=== PATIENT | female | born 1940 | race Caucasian/White ===

== ENCOUNTER 2016-09-10 20:06 | Inpatient (IN) | payer MEDICARE, OTHER ==
[~2016-09-10] VITALS: Ht 152.4 cm; Wt 60.4 kg
[~2016-09-10 20:06] MED LIST: ALEN70TA46 PO; ARIP10TA10 PO; CARV3.1238 PO; CITA20TA6 PO; DOCU-160 PO; FAMO40TA38 PO; FERR324T11 PO; HYDR-1666 PO; HYDR-3581 PO; LISI40TA PO; MEMA5TAB PO; METO5TAB2 PO; SIMV20TA2 PO; SOLI5TAB5 PO; ZOLP10TA PO; asa PO; oxybutin PO
[2016-09-10 20:08] VITALS: Ht 152.4 cm; Wt 60.4 kg
[2016-09-10] MEDS ORDERED: CEFEPIME 2GM/50 ML (PMX) 50 ML IVPB STA (20:09)
[2016-09-10] MEDS ORDERED: SOD CHLORIDE 0.9% 1,000 ML IV STA ×2 (20:09)
[2016-09-10] MEDS ORDERED: VANCOMYCIN 1 GM (PMX) 250 ML IVPB ONE (20:30)
[2016-09-10 20:34] LABS: ADD SCAN DIFF NO
[2016-09-10 20:37] LABS: BASOPHIL # 0.1 10^3/ul (0.0-0.1); BASOPHILS % 0.3 % (0.0-2.0); EOSINOPHILS # 0.2 10^3/ul (0.0-0.5); EOSINOPHILS % 1.1 % (0.0-7.0); HEMATOCRIT 36.8 % (37.0-47.0); HEMOGLOBIN 12.2 g/dl (12.0-16.0); LYMPHOCYTES # 1.4 10^3/ul (0.8-2.9); LYMPHOCYTES % 7.7 % (15.0-51.0); MEAN CORPUSCULAR HEMOGLOBIN 29.3 pg (29.0-33.0); MEAN CORPUSCULAR HGB CONC 33.2 g/dl (32.0-37.0); MEAN CORPUSCULAR VOLUME 88.2 fl (82.0-101.0); MEAN PLATELET VOLUME 9.6 fl (7.4-10.4); MONOCYTE # 0.9 10^3/ul (0.3-0.9); MONOCYTES % 4.8 % (0.0-11.0); NEUTROPHILS % 84.2 % (39.0-77.0); PLATELET COUNT 448 10^3/UL (140-415); RED BLOOD COUNT 4.17 10^6/ul (4.20-5.40); RED CELL DISTRIBUTION WIDTH 12.5 % (11.5-14.5); WHITE BLOOD COUNT 17.8 10^3/ul (4.8-10.8)
[2016-09-10 20:47] LABS: INR 1.01; PROTIME 13.3 Sec (12.2-14.2)
[2016-09-10 20:48] LABS: PARTIAL THROMBOPLASTIN TIME 31.8 Sec (25.0-35.0)
[2016-09-10 20:52] LABS: ALBUMIN 3.4 g/dl (3.3-4.9); CHLORIDE 106 mmol/L (97-110)
[2016-09-10 20:53] LABS: POTASSIUM 3.5 mmol/L (3.5-5.1); SODIUM 145 mmol/L (135-144)
[2016-09-10 20:55] LABS: ALANINE AMINOTRANSFERASE 10 IU/L (13-69); ALBUMIN/GLOBULIN RATIO 0.77; ALKALINE PHOSPHATASE 86 IU/L (42-121); ANION GAP 18 (8-16); ASPARTATE AMINO TRANSFERASE 20 IU/L (15-46); BILIRUBIN,INDIRECT 0.1 mg/dl (0-1.1); BILIRUBIN,TOTAL 0.1 mg/dl (0.2-1.3); BLOOD UREA NITROGEN 31 mg/dl (7-20); CARBON DIOXIDE 25 mmol/L (21-31); CREATININE 0.91 mg/dl (0.44-1.00); TOTAL PROTEIN 7.8 g/dl (6.1-8.1)
[2016-09-10 20:56] LABS: CALCIUM 8.7 mg/dl (8.4-10.2); GLUCOSE 151 mg/dl (70-220)
[2016-09-10 21:14] LABS: TROPONIN-I < 0.012 ng/ml (0.00-0.12)
[2016-09-10 21:48] VITALS: TEMP 99
--- NOTE | 2016-09-10 21:48 | ERA ---
ER Documentation Chief Complaint Date/Time DATE: 09/10/16 TIME: 21:45 Chief Complaint more altered than normal x 2 days, fevers 101-102. nonverbal baseline. HPI Patient is a 75-year-old female with dementia who presents more altered than usual. Please note the history and physical exam is limited secondary to the patient's mental status at this time. There is no family available. The patient was brought in by ambulance. She came from home. She had a fever of 102 at home and was given ibuprofen prior to arrival. The patient had a sugar of 140 per paramedics. She is nonverbal at baseline. However she is usually more awake and alert. ROS All systems reviewed and are negative except as per history of present illness. Medications Home Meds Discontinued Reported Medications Solifenacin* (Vesicare*) 5 Mg Tablet, PO DAILY 10/19/12 Simvastatin (Simvastatin) 20 Mg Tablet, PO DAILY 10/19/12 Alendronate Sodium* (Binosto*) 70 Mg Tablet.eff, PO 1X A WEEK 10/19/12 Lisinopril* (Prinivil*) 40 Mg Tablet, PO DAILY 10/19/12 Docusate Sodium (Dulcolax Stool Softener) 100 Mg Capsule, 200 MG PO BID 10/19/12 Metoclopramide Hcl (Reglan) 5 Mg Tab, 5 MG PO daily 02/01/12 Carvedilol* (Coreg*) 3.125 Mg Tablet, 3.125 MG PO bid, 0 Refills 02/01/12 [oxybutin] No Conflict Check, 5 MG PO DAILY, 0 Refills 02/01/12 Aripiprazole* (Abilify*) 10 Mg Tablet, 10 MG PO daily 02/01/12 Famotidine* (Pepcid*) 40 Mg Tablet, 40 MG PO daily 02/01/12 Ferrous Fumarate (Ferrous Fumarate) 324 Mg Tablet, 324 MG PO daily 02/01/12 Zolpidem Tartrate (Ambien Christiano) 10 Mg Tablet, 10 MG PO HS PRN, 0 Refills 02/01/12 [asa] No Conflict Check, 81 MG PO daily 02/01/12 Citalopram Hydrobromide* (Citalopram Hydrobromide*) 20 Mg Tablet, 20 MG PO daily 02/01/12 Hydrocodone Bit/Acetaminophen (Vicodin 5/500 Tablet) 1 Tab Tablet, 1 TAB PO as nedded 02/01/12 Memantine* (Namenda*) 5 Mg Tablet, 5 MG PO tid, 0 Refills 02/01/12 Hydroxyzine Hcl* (Atarax*) 10 Mg Tab, 10 MG PO daily 02/01/12 Allergies Allergies: Coded Allergies: No Known Allergy (Unverified , 09/10/16) PMhx/Soc History of Surgery: Yes (LEFT MASTECTOMY) Anesthesia Reaction: No Hx Neurological Disorder: Yes (DEMENTIA, ALZHEIMERS) Hx Respiratory Disorders: No Hx Cardiac Disorders: Yes (HTN) Hx Psychiatric Problems: Yes (SCHIZOPHRENIA) Hx Miscellaneous Medical Probl: Yes (BREAST CA) Hx Alcohol Use: No Hx Substance Use: No Hx Tobacco Use: No Smoking Status: Never smoker FmHx Unable to obtain Physical Exam Vitals Vital Signs Date Time Temp Pulse Resp B/P Pulse Ox O2 Delivery O2 Flow Rate FiO2 09/10/16 20:08 99.8 94 19 131/97 92 Physical Exam Const: Chronically ill Head: Atraumatic Eyes: Normal Conjunctiva ENT: Normal External Ears, Nose and Mouth. Neck: Full range of motion..~ No meningismus. Resp: Decreased breath sounds bilaterally Cardio: Regular rate and rhythm, no murmurs Abd: Soft, non tender, non distended. Normal bowel sounds Skin: Pale Back: No midline or flank tenderness Ext: No cyanosis, or edema Neur: Not following commands Result Diagram: 09/10/16201409/10/162014 Results 24 hrs Laboratory Tests Test 09/10/16 20:15 White Blood Count 17.810^3/ul Red Blood Count 4.1710^6/ul Hemoglobin 12.2g/dl Hematocrit 36.8% Mean Corpuscular Volume 88.2fl Mean Corpuscular Hemoglobin 29.3pg Mean Corpuscular Hemoglobin Concent 33.2g/dl Red Cell Distribution Width 12.5% Platelet Count 00044^3/UL Mean Platelet Volume 9.6fl Neutrophils % 84.2% Lymphocytes % 7.7% Monocytes % 4.8% Eosinophils % 1.1% Basophils % 0.3% Nucleated Red Blood Cells % 0.0/100WBC Neutrophils # 15.010^3/ul Lymphocytes # 1.410^3/ul Monocytes # 0.910^3/ul Eosinophils # 0.210^3/ul Basophils # 0.110^3/ul Nucleated Red Blood Cells # 0.010^3/ul Prothrombin Time 13.3Sec Prothrombin Time Ratio 1.0 INR International Normalized Ratio 1.01 Activated Partial Thromboplast Time 31.8Sec Sodium Level 145mmol/L Potassium Level 3.5mmol/L Chloride Level 106mmol/L Carbon Dioxide Level 25mmol/L Anion Gap 18 Blood Urea Nitrogen 31mg/dl Creatinine 0.91mg/dl Glucose Level 151mg/dl Lactic Acid Level 1.8mmol/L Calcium Level 8.7mg/dl Total Bilirubin 0.1mg/dl Direct Bilirubin 0.00mg/dl Indirect Bilirubin 0.1mg/dl Aspartate Amino Transf (AST/SGOT) 20IU/L Alanine Aminotransferase (ALT/SGPT) 10IU/L Alkaline Phosphatase 86IU/L Troponin I < 0.012ng/ml Total Protein 7.8g/dl Albumin 3.4g/dl Globulin 4.40g/dl Albumin/Globulin Ratio 0.77 Current Medications Medications (Trade) Dose Ordered Sig/Frances Route PRN Reason Start Time Stop Time Status Last Admin Dose Admin Cefepime HCl 50 ml @ 100 mls/hr ONCE STAT IVPB 09/10/16 20:09 09/10/16 20:38 DC 09/10/16 21:02 Vancomycin HCl 250 ml @ 125 mls/hr ONCE ONCE IVPB 09/10/16 20:30 09/10/16 22:29 09/10/16 21:24 Sodium Chloride 1,000 ml @ 1,000 mls/hr Q1H STAT IV 09/10/16 20:09 09/10/16 21:08 DC 09/10/16 20:37 Sodium Chloride (NS) 1,000 ml @ 1,000 mls/hr Q1H STAT IV 09/10/16 20:09 09/10/16 21:08 DC 09/10/16 20:37 Ondansetron HCl (Zofran Inj) 4 mg BRIDGE ORDER PRN IV NAUSEA AND/OR VOMITING 09/10/16 22:00 09/11/16 21:59 Acetaminophen (Tylenol Tab) 650 mg ER BRIDGE PRN PO MILD PAIN/FEVER 09/10/16 22:00 09/11/16 21:59 Procedures/MDM EKG read by me: Rate/Rhythm: Regular rate and rhythm at a rate of 85 Intervals: Normal Impression: No evidence of ischemia or arrhythmia Chest X-ray 1V Interpreted by me: Soft Tissue: No acute abnormalities Bones: No acute abnormalities Mediastinum/Cardiac Silhouette/Lungs: Left lower lobe pneumonia Patient is a 75-year-old female with dementia who presents with fever and altered mental status. I believe she has acute pneumonia. I doubt sepsis at this time. The patient will be given broad spectrum antibiotics and fluids. The patient will be admitted to the care of the panel team. I spoke with Dr. Bernard for admission to medical surgical bed. Departure Diagnosis: Primary Impression: Fever Qualified Code: R50.9 - Fever, unspecified fever cause Additional Impressions: Leukocytosis Qualified Code: D72.829 - Leukocytosis, unspecified type Pneumonia Qualified Code: J18.1 - Pneumonia of left lower lobe due to infectious organism Condition: JAMES Thomas MD Sep 10, 2016 21:48
[2016-09-10] MEDS ORDERED: ACETAMINOPHEN 325 MG TAB PO PRN (22:00)
[2016-09-10] MEDS ORDERED: ONDANSETRON 4 MG INJ IV PRN (22:00)
--- NOTE | 2016-09-10 22:32 | RADRPT ---
PROCEDURE: XR Chest. CLINICAL INDICATION: Possible sepsis. Left-sided pneumonia. TECHNIQUE: Single frontal view of the chest. COMPARISON: 02/01/2012. FINDINGS: Cardiomegaly and atherosclerotic calcifications in the thoracic aorta. Left retrocardiac airspace d isease compatible with pneumonia. Mild pulmonary vascular congestion. Right lung is otherwise subs tantially clear. No signs of pleural fluid or pneumothorax are seen. The osseous structures and soft tissues are unremarkable. IMPRESSION: Retrocardiac pneumonia. RPTAT: [facility] Physician Sofi Date Time Electronically viewed and signed by Physician Sofi on 09/10/2016 22:31 RS/
[2016-09-10 23:59] VITALS: BP 142/73; RESP 21
[2016-09-11] MEDS ORDERED: ONDANSETRON 4 MG INJ IV PRN
[2016-09-11] MEDS ORDERED: morphine 2 MG INJ IV PRN
[2016-09-11] MEDS ORDERED: hydrALAzine 20 MG INJ IV PRN
[2016-09-11] MEDS: DEXTROSE 5%-0.45% NACL 1,000 ML IV SCH ×2 (00:34→13:20)
[2016-09-11] MEDS ORDERED: LEVOFLOXACIN 500MG/D5W (PMX) 100 ML IVPB SCH (01:00)
[2016-09-11] MEDS: ALBUTEROL/IPRATROPIUM (NEB) 3 ML AMP HHN SCH ×6 (01:15→21:29)
--- NOTE | 2016-09-11 05:15 | HP ---
DATE OF ADMISSION: 09/10/2016 TIME SEEN: 11:30 CHIEF COMPLAINT: Altered mentation. HISTORY OF PRESENT ILLNESS: The patient is a 75-year-old female with a history of hypertension, dementia, delusional schizophrenia, breast cancer status post right-sided mastectomy, dyslipidemia and degenerative joint disease, who was brought in by ambulance from home for worsening mentation. Information is gathered from chart review and from the ER physician as the patient is not able to provide history because of her mentation and she is not verbal. Reportedly the patient had a fever of 101 and 102 at home per the ER nursing notes. No other additional information can be obtained at this time. on my physical exam, I have noted that there is a large right sided neck mass, which is tender to touch. When the patient presented to the ER, blood pressure was 131/97, heart rate 94, respiratory rate 19, temperature 99.8, oxygen saturation 92% on room air, which increased to 97% on room air within an hour or so. Laboratory value shows a WBC of almost 18,000. Sodium 145, BUN 31. Otherwise, CBC and CMP are within acceptable range. Her lactic acid has been checked 3 times and all were within normal limits. Chest x-ray shows a left retrocardiac airspace disease compatible with pneumonia as well as mild pulmonary vascular congestion, cardiomegaly and atherosclerotic calcification in the thoracic aorta. She received 2 liters of normal saline IV fluid and was started on cefepime and vancomycin while she was in the ER. REVIEW OF SYSTEMS: Unable to assess. PAST MEDICAL HISTORY: As per HPI. PAST SURGICAL HISTORY: Per charting, right mastectomy 10 years ago. SOCIAL HISTORY: Unknown. ALLERGIES: NO KNOWN DRUG ALLERGIES. HOME MEDICATIONS: None listed currently, but during her previous visit 3 years ago she was on: 1. Zocor. 2. Fosamax. 3. Lisinopril. 4. Reglan. 5. Dulcolax. 6. Coreg. 7. Oxybutynin. 8. Abilify. 9. Pepcid. 10. Ferrous fumarate. 11. Ambien. 12. Aspirin. 13. Citalopram. 14. Vicodin. 15. Namenda. 16. Atarax. 17. VESIcare. PHYSICAL EXAMINATION VITAL SIGNS: Blood pressure 142/73, heart rate 90, respiratory rate 21, temperature 98.6, oxygen saturation 97% on 3 liters. GENERAL: The patient is sleepy, but arousable. She appears weak. She is nonverbal and not oriented. HEENT: No obvious head deformity. Pupils are reactive to light. NECK: Right sided neck is swollen with large palpable tender mass CARDIOVASCULAR: Tachycardic with regular rhythm. LUNGS: Diminished breath sounds at the bases, worse on the left than the right , but not able to fully assess CHEST: There is a right-sided mastectomy. ABDOMEN: Soft. No grimaces noted on palpation. There are positive bowel sounds. EXTREMITIES: No edema. LABORATORY DATA: Pertinent positive results as mentioned in the HPI. IMPRESSION: 1. Sepsis as evidenced by leukocytosis and tachycardia, secondary to pneumonia and likely neck abscess 2. Left-sided pneumonia. 3. Most likely Right sided neck abscess 4. History of paranoid schizophrenia. 5. History of breast cancer status post right breast mastectomy. 6. Hypertension. 7. History of degenerative joint disease. PLAN: She will be placed on IV antibiotic. She will receive IV fluid. Will obtain CT of neck to evaluate for neck abscess. We will follow up on the culture results and if able, we will send sputum for Gram stain and culture. She will have a formal swallow evaluation, but until then, we will keep her n.p.o. She will be an assessed by physical therapists. The patient seems appropriate for SNF and daytime doctor will discuss this with the family. We will correct electrolytes as needed. We will monitor her blood pressure and give as needed IV antihypertensives for now. Further workup and management per clinical course. Dictated By: JERONIMO WAGONER/KRISTY Conf#: [id number] DID#: [id number] AJAY
[2016-09-11 07:58] VITALS: BP 147/74; RESP 19
[2016-09-11] MEDS ORDERED: VANCOMYCIN IV PER PHARMACY XX SCH (08:30)
--- NOTE | 2016-09-11 09:46 | PN ---
Date/Time of Note Date/Time of Note DATE: 09/11/16 TIME: 09:43 Assessment/Plan VTE Prophylaxis VTE Prophylaxis Intervention: heparin Assessment/Plan Problems: (1) Submandibular gland mass Status: Acute Comment: According to family this is been present for 3-4 days. Is quite tender. Given the total picture this looks like it is infectious. She is on broad-spectrum antibiotics but will ask ENT (2) Dementia in Alzheimer's disease Status: Chronic Comment: According to family she has been nonverbal and totally dependent for the last 3 years. They specifically state that no physician is ever approached them about advanced planning or advanced directives. Is there desired that she be full code based on discussion despite counseled the natural history and the risks and benefits (3) Essential hypertension Status: Chronic Comment: Controlled (4) Pneumonia Status: Acute Comment: On antibiotics and improving Qualifiers: Pneumonia type: due to unspecified organism Laterality: left Lung location: lower lobe of lung Qualified Code: J18.1 - Pneumonia of left lower lobe due to infectious organism (5) Leukocytosis Status: Acute Qualifiers: Leukocytosis type: unspecified Qualified Code: D72.829 - Leukocytosis, unspecified type Subjective 24 Hr Interval Summary Subjective hx not possible: pt non-verbal Exam/Review of Systems Vital Signs Vitals Vital Signs Date Time Temp Pulse Resp B/P Pulse Ox O2 Delivery O2 Flow Rate FiO2 09/11/16 08:34 95 21 09/11/16 08:34 103 20 09/11/16 07:58 98.4 147/74 09/11/16 01:20 3.0 09/11/16 01:18 Nasal Cannula Intake and Output 09/10/16 09/10/16 09/11/16 14:59 22:59 06:59 Intake Total 600 ml Balance 600 ml Exam Constitutional: non-verbal ENMT: other (Right lower jaw swollen area with tenderness) Neck: non-tender, supple Respiratory: crackles/rales (Left), normal air movement Cardiovascular: nl pulses, regular rate and rhythm Results Result Diagram: 09/10/16201409/10/162014 Results 24 hrs Laboratory Tests Test 09/10/16 20:15 09/10/16 22:12 09/11/16 00:56 White Blood Count 17.8 H Red Blood Count 4.17 L Hemoglobin 12.2 Hematocrit 36.8 L Mean Corpuscular Volume 88.2 Mean Corpuscular Hemoglobin 29.3 Mean Corpuscular Hemoglobin Concent 33.2 Red Cell Distribution Width 12.5 Platelet Count 448 H Mean Platelet Volume 9.6 Neutrophils % 84.2 H Lymphocytes % 7.7 L Monocytes % 4.8 Eosinophils % 1.1 Basophils % 0.3 Nucleated Red Blood Cells % 0.0 Neutrophils # 15.0 H Lymphocytes # 1.4 Monocytes # 0.9 Eosinophils # 0.2 Basophils # 0.1 Nucleated Red Blood Cells # 0.0 Prothrombin Time 13.3 Prothrombin Time Ratio 1.0 INR International Normalized Ratio 1.01 Activated Partial Thromboplast Time 31.8 Sodium Level 145 H Potassium Level 3.5 Chloride Level 106 Carbon Dioxide Level 25 Anion Gap 18 H Blood Urea Nitrogen 31 H Creatinine 0.91 Glucose Level 151 Lactic Acid Level 1.8 1.5 1.8 Calcium Level 8.7 Total Bilirubin 0.1 L Direct Bilirubin 0.00 Indirect Bilirubin 0.1 Aspartate Amino Transf (AST/SGOT) 20 Alanine Aminotransferase (ALT/SGPT) 10 L Alkaline Phosphatase 86 Troponin I < 0.012 Total Protein 7.8 Albumin 3.4 Globulin 4.40 H Albumin/Globulin Ratio 0.77 Medications Medications Current Medications Heparin Sodium (Porcine) 5000 unit 5,000 unit Q12 SC ; Start 09/11/16 at 09:00 Dextrose/Sodium Chloride (D5-1/2ns) 1,000 ml @ 75 mls/hr [id number] IV Last administered on 09/11/16t 00:34; Admin Dose 75 MLS/HR; Start 09/11/16 at 00:00 Ondansetron HCl (Zofran Inj) 4 mg Q6H PRN IV NAUSEA AND/OR VOMITING; Start at 00:00 Morphine Sulfate (morphine) 2 mg Q4H PRN IV PAIN; Start 09/11/16 at 00:00 Hydralazine HCl 10 mg 10 mg Q4H PRN IV ELEVATED BLOOD PRESSURE; Start 09/11/16 at 00:00 Imipenem/ Cilastatin Sodium 100 ml @ 100 mls/hr Q6 IVPB ; Start 09/11/16 at 09: 00 Vancomycin HCl/ Sodium Chloride (Vancocin/NS) 250 ml @ 83.333 mls/ hr Q24H IVPB ; Start 09/11/16 at 14:00 TEN ASHFORD MD Sep 11, 2016 09:46
[2016-09-11] MEDS: IMIPENEM-CILAST 500MG IV (PMX) 100 ML IVPB SCH ×3 (11:45→17:40)
[2016-09-11] MEDS: HEPARIN 5,000 UNIT/0.5 ML VIAL SC SCH ×2 (11:46→23:13)
--- NOTE | 2016-09-11 14:02 | CONS ---
DATE OF ADMISSION: 09/10/2016 DATE OF CONSULTATION: Larry Price is a 75-year-old female who has dementia and Alzheimer's disease, who was admitted l ast night with altered mental status. On exam she was noted to have some right-sided jaw swelling a nd tenderness, so ENT was consulted to evaluate. A CT scan of the neck is pending. PAST MEDICAL HISTORY: Dementia, Alzheimer's, schizophrenia, breast carcinoma. PAST SURGICAL HISTORY: Left mastectomy. DRUG ALLERGIES: NONE. MEDICATIONS: 1. Vancomycin. 2. Imipenem. 3. Heparin. 4. Hydralazine. 5. Morphine. 6. Zofran. SOCIAL HISTORY: Negative for tobacco, alcohol or drug abuse. FAMILY HISTORY: Negative for any heart, lung, kidney failure or liver disease. REVIEW OF SYSTEMS: Patient is nonverbal, but her family denies anything other than previously state d. PHYSICAL EXAMINATION: Today the nose shows a midline septum. Mucosa is without erythema, edema. L ooking at her pharynx showed that she is edentulous in her upper jaw. On the lower jaw she has a den ture which was removed. She does have significant dental disease for the remaining teeth, expressiv yessenia at tooth #32. When palpating that area some blood was able to be noted just from the palpation. The swelling itself appears to be related to the right lower jaw, possibly involving the submandibu lar gland. Looking at the floor of mouth there is right-sided floor of mouth edema to a mild degree . The trachea is midline. The parotids are without lesion. The thyroid is within normal limits. IMPRESSION: Infection of dental origin versus right submandibular sialadenitis. PLAN: I would continue IV antibiotics. I would add warm compresses. If it seems to be related to t he submandibular gland on the CT scan, I would add hydration and sialogogues. I do not suspect there is any abscess at this point. If there are any questions or concerns, please feel free to reconsul t at this time. I will continue to follow. Dictated By: POOJA VELASQUEZ/KRISTY Conf#: [id number] DID#: [id number]
[2016-09-11] MEDS: VANCOMYCIN 1.25 GM in SOD CHLORIDE 0.9% 250 ML IVPB SCH (14:10)
[2016-09-11 16:11] LABS: ADD UMIC YES; URINE BILIRUBIN (Dip) NEGATIVE (NEGATIVE); URINE BLOOD (Dip) TRACE (NEGATIVE); URINE COLOR LT. YELLOW (YELLOW); URINE GLUCOSE (Dip) NEGATIVE (NEGATIVE); URINE KETONES (Dip) NEGATIVE (NEGATIVE); URINE LEUKOCYTE ESTERASE (Dip) TRACE (NEGATIVE); URINE NITRITE (Dip) NEGATIVE (NEGATIVE); URINE TOTAL PROTEIN (Dip) NEGATIVE (NEGATIVE); URINE UROBILINOGEN (Dip) 0.2 E.U./dL (0.1-1.0)
[2016-09-11 16:34] LABS: BACTERIA,URINE MANY
[2016-09-11 16:35] LABS: TRANSITIONAL EPI CELLS,URINE MODERATE
[2016-09-11 20:08] VITALS: BP 145/66; RESP 16
[2016-09-11] MEDS ORDERED: SOD CHLORIDE 0.9% 100 ML ONE (20:55)
[2016-09-11] MEDS ORDERED: IODIXANOL LOCM 100 ML BTL ONE (20:55)
--- NOTE | 2016-09-11 21:55 | RADRPT ---
PROCEDURE: CT soft tissue neck with contrast CLINICAL INDICATION: Right neck mass TECHNIQUE: A CT of the neck was performed utilizing axial sections from the from the thoracic inle t through the skull base with contrast. Coronal and sagittal images were also reformatted. 100 cc of Visipaque 320 intravenous contrast was administered. The exam CTDI vol = 9.51 mGy and DLP = 299.64 mGy-cm. COMPARISON: None available FINDINGS: Visualized intracranial structures and skull base: Visualized brain parenchyma demonstrate diffuse g eneralized atrophy advanced for the patient's provided age. There is no evidence of mass effect, th e fourth ventricle is midline. There is hyperplasia of the right maxillary sinus with some mild muc osal thickening. The mastoid air cells are clear Nasopharynx, oropharynx and tongue base: There is some mild inflammatory stranding of the right para pharyngeal space fat plane without effacement. There is no tonsillar or adenoid abnormality Parotid and core placer spaces: The glands and muscles of mastication are normal bilaterally Carotid spaces: Reactive lymphadenitis on the right side is present the largest lymph node at level II measuring 1 cm in short axis. Severe atherosclerotic calcification of the carotid bifurcations i s seen bilaterally without obvious occlusion or significant stenosis. The internal jugular veins ar e normal bilaterally Submandibular and submental spaces: The most striking finding on this examination correlate with the the patient's symptoms is right submandibular gland enlargement with inflammation and multiple dila gilbert bowel is within the right submandibular gland. This is caused by calculi within the mid to dist al right submandibular duct, the largest estimated at 7 mm (series 3 image 40). There is peripheral enhancement of the dilated right submandibular ducts, findings consistent with sialolithiasis and s ialoadenitis, superimposed infection without abscess cannot be excluded (series 3 images through 31- 47). The left submandibular gland is normal. There is reactive right submandibular lymph node enla rgement measuring 6 mm in short axis. The submental space is unremarkable Posterior triangles: Normal bilaterally Larynx and infraglottic airway: Mild edema within the right aryepiglottic fold and piriform sinuses likely reactive, the epiglottis and vocal cords are unremarkable. The trachea shows dependent mucus secretions to the level of the fang Visceral space: Thyroid goiter is present with thickening of the isthmus and a hypodense approximate ly 2.5 x 1.5 cm. The thyroid lobes are heterogeneous and mildly enlarged Supraclavicular fossae: No abnormalities are demonstrated Visualized thorax: Severe atherosclerotic calcification of the thoracic aorta is present. Scattered areas of patchy upper lobe infiltrates cannot exclude pneumonitis Cervical spine: Mild degenerative spondylosis of the cervical spine is present. There is no acute o sseous abnormality RPTAT:HJJR IMPRESSION: 1. Multiple calculi the largest approximately 7 mm, obstructing the right submandibular duct with s ubmandibular gland enlargement and heterogeneous enhancement, findings consistent with sialolithiasi s and sialoadenitis, superimposed infection without abscess cannot be excluded. 2. Reactive prominent right submandibular and carotid space lymph nodes. 3. Thyroid goiter with thyroid nodules the largest in the isthmus measuring 2.5 cm. If deemed clin ically appropriate, follow-up outpatient ultrasound might be considered. 4. Secretions within the trachea with scattered patchy alveolar infiltrates in the upper lungs bila terally unable to exclude diffuse pneumonitis. 5. Severe atherosclerotic calcification within the aorta and carotid bifurcations without obvious h emodynamically significant stenosis. Physician Live Date Time Electronically viewed and signed by Physician Live on 09/11/2016 21:54 JR/
[2016-09-12] MEDS: IMIPENEM-CILAST 500MG IV (PMX) 100 ML IVPB SCH ×5 (00:26→23:28)
[2016-09-12] MEDS: DEXTROSE 5%-0.45% NACL 1,000 ML IV SCH ×2 (00:33→16:00)
[2016-09-12] MEDS: ALBUTEROL/IPRATROPIUM (NEB) 3 ML AMP HHN SCH ×6 (00:53→20:30)
[2016-09-12 05:35] LABS: ADD SCAN DIFF NO
[2016-09-12 05:58] LABS: BASOPHILS % 0.3 % (0.0-2.0); EOSINOPHILS % 0.1 % (0.0-7.0); HEMATOCRIT 34.7 % (37.0-47.0); HEMOGLOBIN 11.4 g/dl (12.0-16.0); LYMPHOCYTES # 1.1 10^3/ul (0.8-2.9); LYMPHOCYTES % 7.9 % (15.0-51.0); MEAN CORPUSCULAR HEMOGLOBIN 28.9 pg (29.0-33.0); MEAN CORPUSCULAR HGB CONC 32.9 g/dl (32.0-37.0); MEAN CORPUSCULAR VOLUME 88.1 fl (82.0-101.0); MEAN PLATELET VOLUME 9.4 fl (7.4-10.4); MONOCYTE # 0.7 10^3/ul (0.3-0.9); MONOCYTES % 5.2 % (0.0-11.0); NEUTROPHIL # 12.1 10^3/ul (1.6-7.5); NEUTROPHILS % 85.4 % (39.0-77.0); PLATELET COUNT 425 10^3/UL (140-415); RED BLOOD COUNT 3.94 10^6/ul (4.20-5.40); RED CELL DISTRIBUTION WIDTH 12.3 % (11.5-14.5); WHITE BLOOD COUNT 14.2 10^3/ul (4.8-10.8)
[2016-09-12 06:13] LABS: CALCIUM 8.3 mg/dl (8.4-10.2); CREATININE 0.57 mg/dl (0.44-1.00); POTASSIUM 2.8 mmol/L (3.5-5.1)
[2016-09-12 08:14] VITALS: BP 142/63; RESP 19
[2016-09-12] MEDS: HEPARIN 5,000 UNIT/0.5 ML VIAL SC SCH ×2 (08:37→20:28)
[2016-09-12] MEDS ORDERED: POTASSIUM CHLORIDE 30 MEQ in SOD CHLORIDE 0.9% 150 ML IVPB SCH (09:00)
[2016-09-12] MEDS ORDERED: POTASSIUM CHLORIDE 30 MEQ in SOD CHLORIDE 0.9% 150 ML IVPB ONE (09:00)
[2016-09-12] MEDS ORDERED: ACETAMINOPHEN 325 MG SUPP PR PRN (11:30)
--- NOTE | 2016-09-12 11:35 | PN ---
Date/Time of Note Date/Time of Note DATE: 09/12/16 TIME: 11:30 Assessment/Plan VTE Prophylaxis VTE Prophylaxis Intervention: heparin Lines/Catheters IV Catheter Type (from [facility]): Peripheral IV Urinary Cath still in place: Yes Reason Cath still needed: urinary retention Assessment/Plan Problems: (1) Sepsis Status: Acute Comment: Blood cultures are positive for staph. The patient's mental status was changed she was quite febrile she was she was modestly tachycardic and had decrease in blood pressure. All of these issues appear to be improving. We will keep trying to work with this patient. Please note that I believe that she is a significant aspiration risk Qualifiers: Sepsis type: sepsis due to unspecified organism Qualified Code: A41.9 - Sepsis, due to unspecified organism (2) UTI (urinary tract infection) Status: Acute Comment: Urine culture was not ordered from the emergency room. Specimens not available to send for culture and repeating culture after she is received the antibiotics will largely be a waste of time continue treatment. Qualifiers: Urinary tract infection type: acute cystitis Hematuria presence: without hematuria Qualified Code: N30.00 - Acute cystitis without hematuria (3) Dementia in Alzheimer's disease Status: Chronic Comment: This patient has long-term dementia has been nonverbal for 3 years requiring assistance with swallowing and feeding and all activities of daily living. Family is been diligent about maintaining her care and safety. However she may be deteriorating. I have had one conversation with the family about advanced directives foot for now they wish all efforts be done to keep her alive regardless. If we are at the point effacing the need for feeding tube this may change some of their position may be (4) Essential hypertension Status: Chronic Comment: Well-controlled (5) Submandibular gland mass Status: Acute Comment: As above on broad-spectrum antibiotics ENT is seen the patient (6) Pneumonia Status: Acute Comment: On broad-spectrum antibiotics and apparently improving Qualifiers: Pneumonia type: due to unspecified organism Laterality: left Lung location: lower lobe of lung Qualified Code: J18.1 - Pneumonia of left lower lobe due to infectious organism Subjective 24 Hr Interval Summary Subjective hx not possible: pt non-verbal Exam/Review of Systems Vital Signs Vitals Vital Signs Date Time Temp Pulse Resp B/P Pulse Ox O2 Delivery O2 Flow Rate FiO2 09/12/16 09:30 99.5 09/12/16 08:59 4.0 09/12/16 08:59 88 20 95 Nasal Cannula 09/12/16 08:14 142/63 09/11/16 21:33 Intake and Output 09/11/16 09/11/16 09/12/16 15:00 23:00 07:00 Intake Total 100 ml 950 ml 690 ml Output Total 250 ml 800 ml Balance 100 ml 700 ml -110 ml Exam Constitutional: non-verbal Neck: other (Right submandibular swelling persists still firm but it elicits less reaction from the patient is otherwise more awake) Respiratory: clear to auscultation, normal air movement Cardiovascular: nl pulses, regular rate and rhythm Gastrointestinal: nl liver, spleen, non-tender, soft Results Result Diagram: 09/12/165 09/12/165 Results 24 hrs Laboratory Tests Test 09/11/16 15:00 09/12/16 04:25 Urine Color LT. YELLOW Urine Clarity CLOUDY Urine pH 6.0 Urine Specific [place] 1.015 Urine Ketones NEGATIVE Urine Nitrite NEGATIVE Urine Bilirubin NEGATIVE Urine Urobilinogen 0.2 E.U./dL Urine Leukocyte Esterase TRACE H Urine Microscopic RBC 2-5 Urine Microscopic WBC >50 Urine Transitional Epithelial Cells MODERATE Urine Bacteria MANY Urine Hemoglobin TRACE Urine Glucose NEGATIVE Urine Total Protein NEGATIVE White Blood Count 14.2 #H Red Blood Count 3.94 L Hemoglobin 11.4 L Hematocrit 34.7 L Mean Corpuscular Volume 88.1 Mean Corpuscular Hemoglobin 28.9 L Mean Corpuscular Hemoglobin Concent 32.9 Red Cell Distribution Width 12.3 Platelet Count 425 H Mean Platelet Volume 9.4 Neutrophils % 85.4 H Lymphocytes % 7.9 L Monocytes % 5.2 Eosinophils % 0.1 Basophils % 0.3 Nucleated Red Blood Cells % 0.0 Neutrophils # 12.1 H Lymphocytes # 1.1 Monocytes # 0.7 Eosinophils # 0.0 Basophils # 0.0 Nucleated Red Blood Cells # 0.0 Sodium Level 142 Potassium Level 2.8 *L Chloride Level 106 Carbon Dioxide Level 25 Anion Gap 14 Blood Urea Nitrogen 11 # Creatinine 0.57 Glucose Level 153 Calcium Level 8.3 L Medications Medications Current Medications Heparin Sodium (Porcine) 5000 unit 5,000 unit Q12 SC Last administered on t 08:37; Admin Dose 5,000 UNIT; Start 09/11/16 at 09:00 Dextrose/Sodium Chloride (D5-1/2ns) 1,000 ml @ 75 mls/hr [id number] IV Last administered on 09/12/16 00:33; Admin Dose 75 MLS/HR; Start 09/11/16 at 00:00 Ondansetron HCl (Zofran Inj) 4 mg Q6H PRN IV NAUSEA AND/OR VOMITING; Start at 00:00 Morphine Sulfate (morphine) 2 mg Q4H PRN IV PAIN; Start 09/11/16 at 00:00 Hydralazine HCl 10 mg 10 mg Q4H PRN IV ELEVATED BLOOD PRESSURE; Start 09/11/16 at 00:00 Imipenem/ Cilastatin Sodium 100 ml @ 100 mls/hr Q6 IVPB Last administered on 05:17; Admin Dose 100 MLS/HR; Start 09/11/16 at 09:00 Vancomycin HCl 1.25 gm/Sodium Chloride 250 ml @ 83.333 mls/ hr Q24H IVPB Last administered on 09/11/16 14:10; Admin Dose 83.333 MLS/HR; Start 09/11/16 at 14: 00 Potassium Chloride 30 meq/ Sodium Chloride 165 ml @ 55 mls/hr Q3 IVPB Last administered on 09/12/16 09:46; Admin Dose 55 MLS/HR; Start 09/12/16 at 09:00; Stop 09/12/16 at 11:59 Potassium Chloride/Sodium Chloride (KCl/NS) 165 ml @ 55 mls/hr NOW IVPB ; Start 09/12/16 at 13:00; Stop 09/13/16 at 15:59 TEN ASHFORD MD Sep 12, 2016 11:34
[2016-09-12] MEDS: POTASSIUM CHLORIDE 30 MEQ in SOD CHLORIDE 0.9% 150 ML IVPB SCH (13:47)
--- NOTE | 2016-09-12 14:09 | PN ---
DATE: In following with Ms. Price, the floor of mouth edema is about the same. However, the swelling i n the neck is definitely down compared to where I saw it yesterday. PLAN: Will continue current care, will review her scan. If there are any questions or concerns, pl ease feel free to contact me. Dictated By: POOJA VELASQUEZ/KRISTY Conf#: [id number] DID#: [id number]
[2016-09-12] MEDS: VANCOMYCIN 1.25 GM in SOD CHLORIDE 0.9% 250 ML IVPB SCH (18:00)
[2016-09-12 21:12] VITALS: BP 166/74; RESP 19
[2016-09-12 22:30] VITALS: BP 143/76; PULSE 89
[2016-09-13] MEDS: ALBUTEROL/IPRATROPIUM (NEB) 3 ML AMP HHN SCH ×6 (01:09→20:09)
[2016-09-13] MEDS: DEXTROSE 5%-0.45% NACL 1,000 ML IV SCH ×2 (04:15→19:40)
[2016-09-13] MEDS: IMIPENEM-CILAST 500MG IV (PMX) 100 ML IVPB SCH ×3 (05:36→23:24)
[2016-09-13 08:52] VITALS: BP 137/65; PULSE 96
[2016-09-13] MEDS: HEPARIN 5,000 UNIT/0.5 ML VIAL SC SCH ×2 (09:24→20:14)
[2016-09-13] MEDS: POTASSIUM CHLORIDE 30 MEQ in SOD CHLORIDE 0.9% 150 ML IVPB SCH (15:27)
[2016-09-13] MEDS ORDERED: VANCOMYCIN 1.25 GM in SOD CHLORIDE 0.9% 250 ML IVPB SCH (18:00)
--- NOTE | 2016-09-13 19:00 | PN ---
DATE: 09/13/2016 SUBJECTIVE: Chart reviewed. ____ follow up noted. Neck swelling is significantly better today. At this time, the patient is lying in bed and does not appear in acute distress. PHYSICAL EXAMINATION: VITAL SIGNS: Blood pressure 137/65, pulse 96, respiration 18, temperature afebrile. Currently on 4 liters O2 nasal cannula, saturating 96%. HEENT: Pupils are equal and reactive to light. NECK: Supple, no JVD noted, no cervical adenopathy, no carotid bruits heard. LUNGS: Fair breath sounds bilaterally. CARDIOVASCULAR: S1, S2 normal. Soft systolic murmur present at the left sternal border. ABDOMEN: Soft, nontender. No organomegaly or masses noted. EXTREMITIES: No clubbing or cyanosis noted. NEUROLOGIC: The patient opens eyes; however, noncommunicative. LABORATORY DATA: No labs today. IMPRESSION: 1. Sepsis. 2. Urinary tract infection. 3. Dementia with Alzheimer disease. 4. Hypertension. 5. Submandibular area of cellulitis, now improving on antibiotics. 6. Possible pneumonia. RECOMMENDATIONS: 1. Continue current treatment. 2. Continue antibiotics. 3. ENT followup noted and appreciated. 4. Follow up labs. 5. Discussed with family at bedside. Dictated By: CANDELARIA FLORES MD, MA/KRISTY Conf#: [id number] DID#: [id number]
--- NOTE | 2016-09-13 19:14 | PN ---
DATE: HISTORY OF PRESENT ILLNESS: Ms. Price again is unresponsive, other than any tenderness to touch when palpating the right submandibular gland. Again there is some enlargement but it is definitely decreased from what I have seen over the last few days and it appears to be less tender, too. Again , looking at the skin, there is right-sided submandibular gland sialadenitis. I would continue with the compresses and IV hydration. We can consider adding sialogogues in addition to her antibiotics . She should continue to improve from here. If there are any questions or concerns, please feel free to reconsult. Thank you very much. Dictated By: POOJA VELASQUEZ/KRISTY Conf#: [id number] DID#: [id number]
[2016-09-13 19:50] VITALS: BP 148/56; RESP 18
[2016-09-14] MEDS: ALBUTEROL/IPRATROPIUM (NEB) 3 ML AMP HHN SCH ×6 (00:54→21:08)
[2016-09-14] MEDS: DEXTROSE 5%-0.45% NACL 1,000 ML IV SCH ×2 (02:01→18:29)
[2016-09-14] MEDS: IMIPENEM-CILAST 500MG IV (PMX) 100 ML IVPB SCH ×4 (05:24→23:13)
[2016-09-14 06:33] LABS: ADD SCAN DIFF NO
[2016-09-14 06:40] LABS: BASOPHILS % 0.2 % (0.0-2.0); EOSINOPHILS # 0.1 10^3/ul (0.0-0.5); EOSINOPHILS % 1.8 % (0.0-7.0); HEMATOCRIT 29.9 % (37.0-47.0); HEMOGLOBIN 9.8 g/dl (12.0-16.0); LYMPHOCYTES # 1.6 10^3/ul (0.8-2.9); LYMPHOCYTES % 28.2 % (15.0-51.0); MEAN CORPUSCULAR HGB CONC 32.8 g/dl (32.0-37.0); MEAN CORPUSCULAR VOLUME 88.5 fl (82.0-101.0); MEAN PLATELET VOLUME 9.5 fl (7.4-10.4); MONOCYTE # 0.6 10^3/ul (0.3-0.9); MONOCYTES % 10.5 % (0.0-11.0); NEUTROPHIL # 3.3 10^3/ul (1.6-7.5); NEUTROPHILS % 57.7 % (39.0-77.0); PLATELET COUNT 318 10^3/UL (140-415); RED BLOOD COUNT 3.38 10^6/ul (4.20-5.40); RED CELL DISTRIBUTION WIDTH 12.4 % (11.5-14.5); WHITE BLOOD COUNT 5.6 10^3/ul (4.8-10.8)
[2016-09-14 06:52] LABS: CALCIUM 7.7 mg/dl (8.4-10.2); CREATININE 0.42 mg/dl (0.44-1.00); MAGNESIUM 1.7 mg/dl (1.7-2.5); POTASSIUM 3.1 mmol/L (3.5-5.1)
[2016-09-14 08:00] VITALS: BP 136/89; RESP 22
[2016-09-14] MEDS: HEPARIN 5,000 UNIT/0.5 ML VIAL SC SCH ×2 (11:26→20:35)
--- NOTE | 2016-09-14 15:41 | PN ---
Date/Time of Note Date/Time of Note DATE: 09/14/16 TIME: 15:36 Assessment/Plan VTE Prophylaxis VTE Prophylaxis Intervention: heparin Lines/Catheters IV Catheter Type (from Nrs): Peripheral IV Urinary Cath still in place: Yes Reason Cath still needed: other (indicate) Assessment/Plan Assessment/Plan 1. Submandibular area of cellulitis, now improving on primaxin and vanco 2. Urinary tract infection. on primaxin 3. Dementia with Alzheimer disease. chronic 4. Hypertension. controlled 5. DVT prophylaxis, heparin Subjective 24 Hr Interval Summary Free Text/Dictation full alert, demented, no distress, nonverbal Exam/Review of Systems Vital Signs Vitals Vital Signs Date Time Temp Pulse Resp B/P Pulse Ox O2 Delivery O2 Flow Rate FiO2 09/14/16 14:04 78 21 98 21 09/14/16 08:00 97.6 136/89 09/13/16 20:10 4.0 09/13/16 20:10 Nasal Cannula Intake and Output 09/13/16 09/13/16 09/14/16 15:00 23:00 07:00 Intake Total 250 ml 1425 ml Output Total 400 ml 600 ml Balance -150 ml 825 ml Exam Constitutional: alert, non-verbal, well developed Head: atraumatic, normocephalic Eyes: PERRL, nl conjunctiva ENMT: nl external ears & nose, nl lips & teeth, nl nasal mucosa & septum Neck: other (right submendibular area swelling) Respiratory: clear to auscultation, normal air movement, No congested cough, No crackles/rales, No diminished breath sounds, No intercostal retraction, No labored breathing, No other, No respirations, No tactile fremitus, No wheezing Cardiovascular: nl pulses, regular rate and rhythm, No S3, No S4, No bruits, No diastolic murmur, No edema, No gallop, No irregular rhythm, No jugular venous distention (JVD), No murmurs/extra sounds, No other, No rub, No systolic murmur Gastrointestinal: nl liver, spleen, non-tender, soft, No ascites, No bowel sounds, No distended, No firm, No hepatomegaly, No mass , No other, No rebound or guarding, No splenomegaly, No surgical scars, No tender Musculoskeletal: nl extremities to inspection Neurological: FULFILLMENT COORDINATOR II-XII intact, confused Skin: nl turgor Lymph: nl lymph nodes Results Result Diagram: 09/14/16 0520 09/14/16 0520 Results 24 hrs Laboratory Tests Test 09/13/16 16:55 09/14/16 05:20 Vancomycin Level Trough 10.1 White Blood Count 5.6 # Red Blood Count 3.38 L Hemoglobin 9.8 L Hematocrit 29.9 L Mean Corpuscular Volume 88.5 Mean Corpuscular Hemoglobin 29.0 Mean Corpuscular Hemoglobin Concent 32.8 Red Cell Distribution Width 12.4 Platelet Count 318 # Mean Platelet Volume 9.5 Neutrophils % 57.7 Lymphocytes % 28.2 Monocytes % 10.5 Eosinophils % 1.8 Basophils % 0.2 Nucleated Red Blood Cells % 0.0 Neutrophils # 3.3 Lymphocytes # 1.6 Monocytes # 0.6 Eosinophils # 0.1 Basophils # 0.0 Nucleated Red Blood Cells # 0.0 Sodium Level 135 Potassium Level 3.1 L Chloride Level 106 Carbon Dioxide Level 26 Anion Gap 6 L Blood Urea Nitrogen 9 Creatinine 0.42 L Glucose Level 185 Calcium Level 7.7 L Magnesium Level 1.7 Medications Medications Current Medications Heparin Sodium (Porcine) 5000 unit 5,000 unit Q12 SC Last administered on 11:26; Admin Dose 5,000 UNIT; Start 09/11/16 at 09:00 Dextrose/Sodium Chloride (D5-1/2ns) 1,000 ml @ 75 mls/hr [id number] IV Last administered on 09/14/16 02:01; Admin Dose 75 MLS/HR; Start 09/11/16 at 00:00 Ondansetron HCl (Zofran Inj) 4 mg Q6H PRN IV NAUSEA AND/OR VOMITING; Start at 00:00 Morphine Sulfate (morphine) 2 mg Q4H PRN IV PAIN; Start 09/11/16 at 00:00 Hydralazine HCl (Apresoline) 10 mg Q4H PRN IV ELEVATED BLOOD PRESSURE Last administered on 09/13/16 08:12; Admin Dose 10 MG; Start 09/11/16 at 00:00 Acetaminophen 325 mg 325 mg Q6H PRN [place] temperature; Start 09/12/16 at 11:30 Vancomycin HCl 1.5 gm/Sodium Chloride 250 ml @ 83.333 mls/ hr Q24H IVPB ; Start 09/14/16 at 18:00 Imipenem/ Cilastatin Sodium (Primaxin 500 Mg/ 100 ml (Pmx)) 100 ml @ 100 mls/ hr Q6 IVPB Last administered on 09/14/16t 11:25; Admin Dose 100 MLS/HR; Start at 00:00 MANDY MORTON MD September 14, 2016 15:41
[2016-09-14] MEDS: VANCOMYCIN 1.5 GM in SOD CHLORIDE 0.9% 250 ML IVPB SCH (18:30)
[2016-09-14 19:50] VITALS: BP 144/67; RESP 16
[2016-09-14] MEDS: POTASSIUM CHLORIDE 50 ML IVPB SCH ×2 (20:33→22:45)
[2016-09-15] MEDS: ALBUTEROL/IPRATROPIUM (NEB) 3 ML AMP HHN SCH ×6 (00:22→20:39)
[2016-09-15] MEDS: IMIPENEM-CILAST 500MG IV (PMX) 100 ML IVPB SCH ×3 (05:16→17:04)
[2016-09-15 07:05] LABS: ADD SCAN DIFF NO
[2016-09-15 07:12] LABS: BASOPHILS % 0.4 % (0.0-2.0); EOSINOPHILS # 0.1 10^3/ul (0.0-0.5); EOSINOPHILS % 1.2 % (0.0-7.0); HEMATOCRIT 38.3 % (37.0-47.0); HEMOGLOBIN 12.6 g/dl (12.0-16.0); LYMPHOCYTES # 1.6 10^3/ul (0.8-2.9); LYMPHOCYTES % 23.3 % (15.0-51.0); MEAN CORPUSCULAR HEMOGLOBIN 28.6 pg (29.0-33.0); MEAN CORPUSCULAR HGB CONC 32.9 g/dl (32.0-37.0); MEAN CORPUSCULAR VOLUME 86.8 fl (82.0-101.0); MEAN PLATELET VOLUME 9.6 fl (7.4-10.4); MONOCYTE # 1.2 10^3/ul (0.3-0.9); MONOCYTES % 16.9 % (0.0-11.0); NEUTROPHIL # 3.9 10^3/ul (1.6-7.5); NEUTROPHILS % 56.6 % (39.0-77.0); PLATELET COUNT 366 10^3/UL (140-415); RED BLOOD COUNT 4.41 10^6/ul (4.20-5.40); RED CELL DISTRIBUTION WIDTH 12.3 % (11.5-14.5); WHITE BLOOD COUNT 6.9 10^3/ul (4.8-10.8)
[2016-09-15 07:33] LABS: POTASSIUM 3.6 mmol/L (3.5-5.1)
[2016-09-15 07:35] LABS: CREATININE 0.41 mg/dl (0.44-1.00)
[2016-09-15 07:36] LABS: CALCIUM 8.4 mg/dl (8.4-10.2)
[2016-09-15 07:56] VITALS: BP 197/117; RESP 22
[2016-09-15 08:55] VITALS: BP 133/63; PULSE 87
[2016-09-15] MEDS: HEPARIN 5,000 UNIT/0.5 ML VIAL SC SCH ×2 (08:58→20:38)
--- NOTE | 2016-09-15 15:49 | PN ---
Date/Time of Note Date/Time of Note DATE: 09/15/16 TIME: 15:39 Assessment/Plan VTE Prophylaxis VTE Prophylaxis Intervention: heparin Lines/Catheters IV Catheter Type (from Nrs): Peripheral IV Urinary Cath still in place: Yes Reason Cath still needed: other (indicate) Assessment/Plan Assessment/Plan 1. Submandibular area of cellulitis, now improving on primaxin and vanco 2. Urinary tract infection. on primaxin 3. Dementia with Alzheimer disease. chronic 4. Hypertension. controlled 5. DVT prophylaxis, heparin Subjective 24 Hr Interval Summary Free Text/Dictation afebrile. no distress Exam/Review of Systems Vital Signs Vitals Vital Signs Date Time Temp Pulse Resp B/P Pulse Ox O2 Delivery O2 Flow Rate FiO2 09/15/16 13:34 88 20 96 21 09/15/16 08:55 133/63 09/15/16 07:56 98.4 09/14/16 21:00 Nasal Cannula 4.0 Intake and Output 09/14/16 09/14/16 09/15/16 15:00 23:00 07:00 Intake Total 100 ml 1175 ml 250 ml Output Total 1000 ml 1600 ml Balance 100 ml 175 ml -1350 ml Exam Constitutional: alert, non-verbal Head: atraumatic, normocephalic Eyes: EOMI, PERRL, nl conjunctiva, nl lids ENMT: nl external ears & nose, nl lips & teeth, nl nasal mucosa & septum Neck: non-tender, other (right submandibular swelling), supple Respiratory: clear to auscultation, normal air movement, No congested cough, No crackles/rales, No diminished breath sounds, No intercostal retraction, No labored breathing, No other, No respirations, No tactile fremitus, No wheezing Cardiovascular: nl pulses, regular rate and rhythm, No S3, No S4, No bruits, No diastolic murmur, No edema, No gallop, No irregular rhythm, No jugular venous distention (JVD), No murmurs/extra sounds, No other, No rub, No systolic murmur Gastrointestinal: nl liver, spleen, non-tender, soft, No ascites, No bowel sounds, No distended, No firm, No hepatomegaly, No mass , No other, No rebound or guarding, No splenomegaly, No surgical scars, No tender Musculoskeletal: nl extremities to inspection Extremities: normal pulses, No calf tenderness, No clubbing, No cyanosis, No edema, No other, No palpable cord, No pitting pedal edema, No tenderness Neurological: ERP IMPLEMENTATION CONSULTANT II-XII intact, confused Skin: nl turgor Lymph: nl lymph nodes Results Result Diagram: 09/15/16 0548 09/15/16 0548 Results 24 hrs Laboratory Tests Test 09/15/16 05:48 White Blood Count 6.9 # Red Blood Count 4.41 # Hemoglobin 12.6 # Hematocrit 38.3 # Mean Corpuscular Volume 86.8 Mean Corpuscular Hemoglobin 28.6 L Mean Corpuscular Hemoglobin Concent 32.9 Red Cell Distribution Width 12.3 Platelet Count 366 Mean Platelet Volume 9.6 Neutrophils % 56.6 Lymphocytes % 23.3 Monocytes % 16.9 H Eosinophils % 1.2 Basophils % 0.4 Nucleated Red Blood Cells % 0.0 Neutrophils # 3.9 Lymphocytes # 1.6 Monocytes # 1.2 H Eosinophils # 0.1 Basophils # 0.0 Nucleated Red Blood Cells # 0.0 Sodium Level 140 Potassium Level 3.6 Chloride Level 102 Carbon Dioxide Level 24 Anion Gap 18 #H Blood Urea Nitrogen 6 L Creatinine 0.41 L Glucose Level 78 # Calcium Level 8.4 Medications Medications Current Medications Heparin Sodium (Porcine) 5000 unit 5,000 unit Q12 SC Last administered on 08:58; Admin Dose 5,000 UNIT; Start 09/11/16 at 09:00 Dextrose/Sodium Chloride (D5-1/2ns) 1,000 ml @ 75 mls/hr [id number] IV Last administered on 09/14/16 18:29; Admin Dose 75 MLS/HR; Start 09/11/16 at 00:00 Ondansetron HCl (Zofran Inj) 4 mg Q6H PRN IV NAUSEA AND/OR VOMITING; Start at 00:00 Morphine Sulfate (morphine) 2 mg Q4H PRN IV PAIN; Start 09/11/16 at 00:00 Hydralazine HCl (Apresoline) 10 mg Q4H PRN IV ELEVATED BLOOD PRESSURE Last administered on 09/13/16 08:12; Admin Dose 10 MG; Start 09/11/16 at 00:00 Acetaminophen 325 mg 325 mg Q6H PRN [place] temperature; Start 09/12/16 at 11:30 Vancomycin HCl 1.5 gm/Sodium Chloride 250 ml @ 83.333 mls/ hr Q24H IVPB Last administered on 09/14/16 18:30; Admin Dose 83.333 MLS/HR; Start 09/14/16 at 18:00 Imipenem/ Cilastatin Sodium 100 ml @ 100 mls/hr Q6 IVPB Last administered on 11:33; Admin Dose 100 MLS/HR; Start 09/14/16 at 00:00; Stop 09/15/16 at 23 :45 Meropenem (Merrem 1 Gm/100 ml (Pmx)) 100 ml @ 200 mls/hr Q12 IVPB ; Start at 09:00 MANDY MORTON MD September 15, 2016 15:49
[2016-09-15] MEDS ORDERED: VANCOMYCIN IV PER PHARMACY XX SCH (16:00)
[2016-09-15] MEDS: VANCOMYCIN 1.5 GM in SOD CHLORIDE 0.9% 250 ML IVPB SCH (18:37)
[2016-09-15 20:29] VITALS: BP 135/72; RESP 18
[2016-09-15] MEDS: DEXTROSE 5%-0.45% NACL 1,000 ML IV SCH ×2 (20:39→23:24)
[2016-09-16] MEDS: ALBUTEROL/IPRATROPIUM (NEB) 3 ML AMP HHN SCH ×6 (00:11→21:04)
[2016-09-16] MEDS: HEPARIN 5,000 UNIT/0.5 ML VIAL SC SCH ×2 (08:03→21:31)
[2016-09-16] MEDS: MEROPENEM 1 GM/100 ML (PMX) 100 ML IVPB SCH ×2 (08:04→21:30)
[2016-09-16 08:18] VITALS: BP 153/64; PULSE 90; RESP 20
[2016-09-16] MEDS: DEXTROSE 5%-0.45% NACL 1,000 ML IV SCH (15:17)
[2016-09-16] MEDS ORDERED: CLIN-73 PO (16:31)
--- NOTE | 2016-09-16 16:41 | PN ---
Date/Time of Note Date/Time of Note DATE: 09/16/16 TIME: 16:38 Assessment/Plan VTE Prophylaxis VTE Prophylaxis Intervention: heparin Lines/Catheters IV Catheter Type (from Nrs): Peripheral IV Urinary Cath still in place: Yes Reason Cath still needed: other (indicate) Assessment/Plan Assessment/Plan 1. Submandibular area of cellulitis, now improving, continue augmentin 2. Urinary tract infection. treated 3. Aspiration pneumonia, on augmentin 3. Dementia with Alzheimer disease. chronic 4. Hypertension. controlled Subjective 24 Hr Interval Summary Free Text/Dictation alert, no distress Exam/Review of Systems Vital Signs Vitals Vital Signs Date Time Temp Pulse Resp B/P Pulse Ox O2 Delivery O2 Flow Rate FiO2 09/16/16 12:21 85 18 98 21 09/16/16 08:18 98.6 153/64 09/14/16 21:00 Nasal Cannula 4.0 Intake and Output 09/15/16 09/15/16 09/16/16 15:00 23:00 07:00 Intake Total 100 ml 1350 ml 750 ml Output Total 400 ml 1000 ml Balance 100 ml 950 ml -250 ml Exam Constitutional: alert, non-verbal, well developed Head: atraumatic, normocephalic Eyes: EOMI, PERRL, nl conjunctiva, nl lids ENMT: mucosa pink and moist, nl external ears & nose, nl lips & teeth, nl nasal mucosa & septum Neck: other (right submendibular mass) Respiratory: clear to auscultation, normal air movement, No congested cough, No crackles/rales, No diminished breath sounds, No intercostal retraction, No labored breathing, No other, No respirations, No tactile fremitus, No wheezing Cardiovascular: nl pulses, regular rate and rhythm, No S3, No S4, No bruits, No diastolic murmur, No edema, No gallop, No irregular rhythm, No jugular venous distention (JVD), No murmurs/extra sounds, No other, No rub, No systolic murmur Gastrointestinal: nl liver, spleen, non-tender, soft, No ascites, No bowel sounds, No distended, No firm, No hepatomegaly, No mass , No other, No rebound or guarding, No splenomegaly, No surgical scars, No tender Musculoskeletal: nl extremities to inspection Extremities: normal pulses, No calf tenderness, No clubbing, No cyanosis, No edema, No other, No palpable cord, No pitting pedal edema, No tenderness Neurological: PRESS SUPERVISOR II-XII intact, confused Results Result Diagram: 09/15/16 0548 09/15/16 0548 Medications Medications Current Medications Heparin Sodium (Porcine) 5000 unit 5,000 unit Q12 SC Last administered on 08:03; Admin Dose 5,000 UNIT; Start 09/11/16 at 09:00 Dextrose/Sodium Chloride (D5-1/2ns) 1,000 ml @ 75 mls/hr [id number] IV Last administered on 09/16/16 15:17; Admin Dose 75 MLS/HR; Start 09/11/16 at 00:00 Ondansetron HCl (Zofran Inj) 4 mg Q6H PRN IV NAUSEA AND/OR VOMITING; Start at 00:00 Morphine Sulfate (morphine) 2 mg Q4H PRN IV PAIN; Start 09/11/16 at 00:00 Hydralazine HCl (Apresoline) 10 mg Q4H PRN IV ELEVATED BLOOD PRESSURE Last administered on 09/13/16 08:12; Admin Dose 10 MG; Start 09/11/16 at 00:00 Acetaminophen 325 mg 325 mg Q6H PRN [place] temperature; Start 09/12/16 at 11:30 Vancomycin HCl 1.5 gm/Sodium Chloride 250 ml @ 83.333 mls/ hr Q24H IVPB Last administered on 09/15/16 18:37; Admin Dose 83.333 MLS/HR; Start 09/14/16 at 18:00 Meropenem (Merrem 1 Gm/100 ml (Pmx)) 100 ml @ 200 mls/hr Q12 IVPB Last administered on 09/16/16 08:04; Admin Dose 200 MLS/HR; Start 09/16/16 at 09:00 Miscellaneous Information (*Rx Drug Level Order Reminder*) VANCOMYCIN TROUGH 09/17 AT 1700 ONCE ONCE XX ; Start 09/17/16 at 17:00; Stop 09/17/16 at 17:01 MANDY MORTON MD September 16, 2016 16:41
[2016-09-16] MEDS: VANCOMYCIN 1.5 GM in SOD CHLORIDE 0.9% 250 ML IVPB SCH (17:29)
[2016-09-16 21:45] VITALS: BP 111/63; RESP 18
[2016-09-17] MEDS: ALBUTEROL/IPRATROPIUM (NEB) 3 ML AMP HHN SCH ×4 (01:41→13:00)
[2016-09-17] MEDS: DEXTROSE 5%-0.45% NACL 1,000 ML IV SCH ×2 (02:40→12:51)
[2016-09-17 07:30] VITALS: BP 127/60; RESP 16
[2016-09-17] MEDS: HEPARIN 5,000 UNIT/0.5 ML VIAL SC SCH (08:02)
[2016-09-17] MEDS: MEROPENEM 1 GM/100 ML (PMX) 100 ML IVPB SCH (08:02)
--- NOTE | 2016-09-17 15:49 | DS ---
Date/Time of Note Date/Time of Note DATE: 09/17/16 TIME: 15:39 Discharge Summary Admission/Discharge Info Admit Date/Time Sep 10, 2016 at 21:38 Discharge Date/Time Final Diagnosis 1. Submandibular area of cellulitis, improving, continue clindamycin 2. Urinary tract infection. treated 3. Aspiration pneumonia, on clindamycin 3. Dementia with Alzheimer disease. chronic 4. Hypertension. controlled Patient Condition: Stable Hospital Course The patient is a 75-year-old female with a history of hypertension, dementia, delusional schizophrenia, breast cancer status post right-sided mastectomy, dyslipidemia and degenerative joint disease, who was brought in by ambulance from home for worsening mentation. Information is gathered from chart review and from the ER physician as the patient is not able to provide history because of her mentation and she is not verbal. Reportedly the patient had a fever of 101 and 102 at home per the ER nursing notes Physical exam there is right submandibular swelling and CT scan revealed multiple calculi the largest approximately 7 mm, obstructing the right submandibular duct with submandibular gland enlargement and heterogeneous enhancement, findings consistent with sialolithiasis and sialoadenitis, superimposed infection without abscess cannot be excluded. Reactive prominent right submandibular and carotid space lymph nodes. Patient is on zosyn and vancomycin for submandibular infection. That has been gradually improving with less swelling. She is alert but demented. She eats well when the feeds her. She will be on clindamycin and follow up with PCP in one week CXR revealed pulmonary infiltrates that she is getting antibiotics. No respiratory distress clinically.Urine WBC >50. That has been treated with antibiotics. Blood culture on 09/10/2016 was positive for COAGULASE NEGATIVE STAPH. It is more likely contamination. Repeated blood culture on 09/12/2016 is negative. Home Meds Active Scripts Clindamycin Hcl* (Clindamycin Hcl*) 300 Mg Capsule, 300 MG PO Q6 for 10 Days, CAP Prov:MANDY MORTON MD 09/16/16 Discontinued Reported Medications Solifenacin* (Vesicare*) 5 Mg Tablet, PO DAILY 10/19/12 Simvastatin (Simvastatin) 20 Mg Tablet, PO DAILY 10/19/12 Alendronate Sodium* (Binosto*) 70 Mg Tablet.eff, PO 1X A WEEK 10/19/12 Lisinopril* (Prinivil*) 40 Mg Tablet, PO DAILY 10/19/12 Docusate Sodium (Dulcolax Stool Softener) 100 Mg Capsule, 200 MG PO BID 10/19/12 Metoclopramide Hcl (Reglan) 5 Mg Tab, 5 MG PO daily 02/01/12 Carvedilol* (Coreg*) 3.125 Mg Tablet, 3.125 MG PO bid, 0 Refills 02/01/12 [oxybutin] No Conflict Check, 5 MG PO DAILY, 0 Refills 02/01/12 Aripiprazole* (Abilify*) 10 Mg Tablet, 10 MG PO daily 02/01/12 Famotidine* (Pepcid*) 40 Mg Tablet, 40 MG PO daily 02/01/12 Ferrous Fumarate (Ferrous Fumarate) 324 Mg Tablet, 324 MG PO daily 02/01/12 Zolpidem Tartrate (Ambien Christiano) 10 Mg Tablet, 10 MG PO HS PRN, 0 Refills 02/01/12 [asa] No Conflict Check, 81 MG PO daily 02/01/12 Citalopram Hydrobromide* (Citalopram Hydrobromide*) 20 Mg Tablet, 20 MG PO daily 02/01/12 Hydrocodone Bit/Acetaminophen (Vicodin 5/500 Tablet) 1 Tab Tablet, 1 TAB PO as nedded 02/01/12 Memantine* (Namenda*) 5 Mg Tablet, 5 MG PO tid, 0 Refills 02/01/12 Hydroxyzine Hcl* (Atarax*) 10 Mg Tab, 10 MG PO daily 02/01/12 Follow-up Plan PCP in one week MANDY MORTON MD September 17, 2016 15:49
[2016-09-17] MEDS ORDERED: CLIN-73 PO (15:53)
[2016-09-17] MEDS: VANCOMYCIN 1.5 GM in SOD CHLORIDE 0.9% 250 ML IVPB SCH (18:00)
[2016-09-17 20:14] VITALS: BP 129/62; PULSE 69; RESP 18
== END 2016-09-17 20:18 | disposition home health service (06) | DRG 871 ==
LOC: E/R 20:06 → PP2 21:38
PROVIDERS: ADMIT Internal Medicine; ATTEND Internal Medicine
DX: A41.1 Sepsis due to other specified staphylococcus (principal); G93.41 Metabolic encephalopathy; J69.0 Pneumonitis due to inhalation of food and vomit; N39.0 Urinary tract infection, site not specified; F20.0 Paranoid schizophrenia; K12.2 Cellulitis and abscess of mouth; G30.9 Alzheimer's disease, unspecified; F02.80 Dementia in other diseases classified elsewhere, unspecified severity, without behavioral disturbance, psychotic disturbance, mood disturbance, and anxiety; Z85.3 Personal history of malignant neoplasm of breast; I10 Essential (primary) hypertension; K11.5 Sialolithiasis
CPT/HCPCS: 36415; 70490; 71010; 80048; 80053; 80202; 81001; 81003; 83605; 83735; 84484; 85025; 85610; 85730; 87040; 92526; 92610; 93005; 94640; 96365; 96366; 96375; 97162; J0360; J0692; J0743; J1644; J1956; J2185; J3370; J3480; J7030; J7042; J7050; Q9967

== ENCOUNTER 2017-04-28 09:10 | Inpatient (IN) | payer MEDICARE, OTHER ==
[~2017-04-28] VITALS: Ht 165.1 cm; Wt 65.0 kg
[~2017-04-28 09:10] MED LIST changes: -ALEN70TA46 PO; -ARIP10TA10 PO; -CARV3.1238 PO; -CITA20TA6 PO; +CLIN-73 PO; -DOCU-160 PO; -FAMO40TA38 PO; -FERR324T11 PO; -HYDR-1666 PO; -HYDR-3581 PO; -LISI40TA PO; -MEMA5TAB PO; -METO5TAB2 PO; -SIMV20TA2 PO; -SOLI5TAB5 PO; -ZOLP10TA PO; -asa PO; -oxybutin PO
[2017-04-28] MEDS ORDERED: SODIUM CHLORIDE 0.9% 1L BAG IV* STA (09:13)
[2017-04-28 09:19] VITALS: Ht 165.1 cm; Wt 65.0 kg
[2017-04-28] MEDS ORDERED: CEFTRIAXONE 1 GM/50 ML (PMX) 50 ML IVPB ONE (09:30)
[2017-04-28] MEDS ORDERED: ONDANSETRON 4 MG INJ IV STA (09:38)
[2017-04-28 09:53] LABS: BASOPHIL # 0.1 10^3/ul (0.0-0.1); BASOPHILS % 0.7 % (0.0-2.0); EOSINOPHILS # 0.1 10^3/ul (0.0-0.5); EOSINOPHILS % 1.2 % (0.0-7.0); HEMATOCRIT 42.8 % (37.0-47.0); HEMOGLOBIN 14.5 g/dl (12.0-16.0); LYMPHOCYTES # 2.2 10^3/ul (0.8-2.9); LYMPHOCYTES % 26.1 % (15.0-51.0); MEAN CORPUSCULAR HEMOGLOBIN 29.4 pg (29.0-33.0); MEAN CORPUSCULAR HGB CONC 33.9 g/dl (32.0-37.0); MEAN CORPUSCULAR VOLUME 86.6 fl (82.0-101.0); MEAN PLATELET VOLUME 9.7 fl (7.4-10.4); MONOCYTE # 0.4 10^3/ul (0.3-0.9); MONOCYTES % 4.6 % (0.0-11.0); NEUTROPHIL # 5.6 10^3/ul (1.6-7.5); NEUTROPHILS % 66.4 % (39.0-77.0); PLATELET COUNT 269 10^3/UL (140-415); RED BLOOD COUNT 4.94 10^6/ul (4.20-5.40); RED CELL DISTRIBUTION WIDTH 12.3 % (11.5-14.5); WHITE BLOOD COUNT 8.4 10^3/ul (4.8-10.8)
[2017-04-28 10:15] LABS: ALANINE AMINOTRANSFERASE 21 IU/L (13-69); ALBUMIN/GLOBULIN RATIO 1.02; ALKALINE PHOSPHATASE 55 IU/L (42-121); ANION GAP 15 (8-16); ASPARTATE AMINO TRANSFERASE 24 IU/L (15-46); BILIRUBIN,INDIRECT 0.5 mg/dl (0-1.1); BILIRUBIN,TOTAL 0.5 mg/dl (0.2-1.3); BLOOD UREA NITROGEN 19 mg/dl (7-20); CALCIUM 9.4 mg/dl (8.4-10.2); CARBON DIOXIDE 26 mmol/L (21-31); CHLORIDE 106 mmol/L (97-110); CREATININE 0.64 mg/dl (0.44-1.00); GLUCOSE 158 mg/dl (70-220); POTASSIUM 4.2 mmol/L (3.5-5.1); SODIUM 143 mmol/L (135-144); TOTAL PROTEIN 7.9 g/dl (6.1-8.1)
[2017-04-28 10:19] LABS: INR 0.93; PROTIME 12.5 Sec (11.9-14.9)
[2017-04-28 10:22] LABS: PARTIAL THROMBOPLASTIN TIME 27.2 Sec (25.0-35.0)
[2017-04-28 10:25] LABS: ADD UMIC YES; UR AMORPHOUS CRYSTAL FEW /HPF (NONE SEEN); UR ASCORBIC ACID NEGATIVE (NEGATIVE); UR BACTERIA FEW /HPF (NONE SEEN); UR BILIRUBIN (Dip) NEGATIVE (NEGATIVE); UR BLOOD (Dip) NEGATIVE (NEGATIVE); UR CLARITY CLOUDY (CLEAR); UR COLOR YELLOW (YELLOW); UR GLUCOSE (Dip) NEGATIVE (NEGATIVE); UR KETONES (Dip) NEGATIVE (NEGATIVE); UR LEUKOCYTE ESTERASE (Dip) 2+ Leu/ul (NEGATIVE); UR MUCUS FEW /HPF (NONE SEEN); UR NITRITE (Dip) POSITIVE (NEGATIVE); UR RBC 6 /HPF (0-5); UR SPECIFIC GRAVITY (Dip) 1.014 (1.003-1.030); UR SQUAMOUS EPITHELIAL CELL FEW /HPF (FEW); UR TOTAL PROTEIN (Dip) 1+ mg/dl (NEGATIVE); UR UROBILINOGEN (Dip) NEGATIVE (NEGATIVE)
[2017-04-28 10:27] LABS: TROPONIN-I < 0.012 ng/ml (0.00-0.12)
--- NOTE | 2017-04-28 11:29 | ERD ---
ER Documentation Chief Complaint Chief Complaint BIB RA FROM HOME FOR ALTERED MORE THAN NORMAL , VOMITING HPI 76-year-old female brought to the emergency department by ambulance for evaluation of altered level of consciousness. Patient is nonverbal and bedbound at baseline. According to the paramedics, who received history from the family, patient's has been recently more confused than usual. The details of what change this is her somewhat unclear. I have reviewed the laundry washer pre-hospital care. Pre-hospital vital signs were reviewed. Pre-hospital diagnostic tests were reviewed. Upon arrival, patient is unable to provide any further history. ROS All systems reviewed and are negative except as per history of present illness. Medications Home Meds Discontinued Scripts Clindamycin Hcl* (Clindamycin Hcl*) 300 Mg Capsule, 300 MG PO Q6 for 7 Days, CAP Prov:MANDY MORTON MD 09/17/16 Allergies Allergies: Coded Allergies: No Known Allergy (Unverified , 09/10/16) PMhx/Soc History of Surgery: Yes (right mastectomy 10 yrs ago) Anesthesia Reaction: No Hx Neurological Disorder: Yes Hx Respiratory Disorders: No Hx Cardiac Disorders: Yes Hx Psychiatric Problems: Yes (depression) Hx Miscellaneous Medical Probl: No Hx Alcohol Use: No Hx Substance Use: No Hx Tobacco Use: No Smoking Status: Unknown if ever smoked FmHx Noncontributory for chief complaint Physical Exam Vitals Vital Signs Date Time Temp Pulse Resp B/P Pulse Ox O2 Delivery O2 Flow Rate FiO2 04/28/17 10:30 62 18 158/98 100 Nasal Cannula 2.0 04/28/17 09:26 Nasal Cannula 2 04/28/17 09:19 99.8 86 18 139/125 96 Physical Exam GENERAL: Patient is a frail elderly bedbound female HEENT: Pupils equal, round, and reactive to light. EOMI. There is no scleral icterus. NECK: C-spine is soft and supple, there is no meningismus. There is no cervical lymphadenopathy. LUNGS: Clear to auscultation bilaterally. There are no rales, wheezes or rhonchi. HEART: Regular rate and rhythm, no murmurs, clicks, rubs or gallops. ABDOMEN: Soft, non-tender, non-distended. There are bowel sounds in all four quadrants. No rebound or guarding. : Diapered and incontinent EXTREMITIES: There is no peripheral cyanosis or edema. No focal swelling or erythema. NEURO: Patient has her eyes open but is nonverbal. She has no significant insight. She is weak in all 4 extremities but no focal weakness noted. SKIN: There is no apparent rash or petechiae. HEME/LYMPHATIC: There is no evidence of excessive bruising or lymphedema. PSYCHIATRIC: The patient does not appear anxious or depressed. Result Diagram: 04/28/1730 04/28/1730 Results 24 hrs Laboratory Tests Test 04/28/17 09:30 04/28/17 09:50 White Blood Count 8.410^3/ul Red Blood Count 4.9410^6/ul Hemoglobin 14.5g/dl Hematocrit 42.8% Mean Corpuscular Volume 86.6fl Mean Corpuscular Hemoglobin 29.4pg Mean Corpuscular Hemoglobin Concent 33.9g/dl Red Cell Distribution Width 12.3% Platelet Count 07548^3/UL Mean Platelet Volume 9.7fl Neutrophils % 66.4% Lymphocytes % 26.1% Monocytes % 4.6% Eosinophils % 1.2% Basophils % 0.7% Nucleated Red Blood Cells % 0.0/100WBC Neutrophils # 5.610^3/ul Lymphocytes # 2.210^3/ul Monocytes # 0.410^3/ul Eosinophils # 0.110^3/ul Basophils # 0.110^3/ul Nucleated Red Blood Cells # 0.010^3/ul Prothrombin Time 12.5Sec Prothrombin Time Ratio 1.0 INR International Normalized Ratio 0.93 Activated Partial Thromboplast Time 27.2Sec Sodium Level 143mmol/L Potassium Level 4.2mmol/L Chloride Level 106mmol/L Carbon Dioxide Level 26mmol/L Anion Gap 15 Blood Urea Nitrogen 19mg/dl Creatinine 0.64mg/dl Glucose Level 158mg/dl Lactic Acid Level 1.9mmol/L Calcium Level 9.4mg/dl Total Bilirubin 0.5mg/dl Direct Bilirubin 0.00mg/dl Indirect Bilirubin 0.5mg/dl Aspartate Amino Transf (AST/SGOT) 24IU/L Alanine Aminotransferase (ALT/SGPT) 21IU/L Alkaline Phosphatase 55IU/L Troponin I < 0.012ng/ml Total Protein 7.9g/dl Albumin 4.0g/dl Globulin 3.90g/dl Albumin/Globulin Ratio 1.02 Urine Color YELLOW Urine Clarity CLOUDY Urine pH 7.0 Urine Specific [place] 1.014 Urine Ketones NEGATIVEmg/dL Urine Nitrite POSITIVEmg/dL Urine Bilirubin NEGATIVEmg/dL Urine Urobilinogen NEGATIVEmg/dL Urine Leukocyte Esterase 2+Chitra/ul Urine Microscopic RBC 6/HPF Urine Microscopic WBC 66/HPF Urine Squamous Epithelial Cells FEW/HPF Urine Amorphous Crystals FEW/HPF Urine Bacteria FEW/HPF Urine Mucus FEW/HPF Urine Hemoglobin NEGATIVEmg/dL Urine Glucose NEGATIVEmg/dL Urine Total Protein 1+mg/dl Current Medications Medications (Trade) Dose Ordered Sig/Frances Route PRN Reason Start Time Stop Time Status Last Admin Dose Admin Sodium Chloride 1860 ml 1,860 ml BOLUS OVER 2 HOURS STAT IV* 04/28/17 09:13 04/28/17 09:15 DC 04/28/17 09:30 Ceftriaxone Sodium (Rocephin) 50 ml @ 100 mls/hr ONCE ONCE IVPB 04/28/17 09:30 04/28/17 09:59 DC 04/28/17 09:57 Ondansetron HCl (Zofran Inj) 4 mg ONCE STAT IV 04/28/17 09:38 04/28/17 09:39 DC 04/28/17 09:57 Procedures/MDM Patient was taken to a room, seen and evaluated. Comfort measures were initiated. Diagnostic tests were ordered and reviewed. 3 LEAD RHYTHM STRIP: Normal sinus rhythm without ectopy EK lead EKG reviewed by myself: Normal Sinus Rhythm Left axis deviation Nonspecific ST and T-wave changes Impression: Nondiagnostic EKG RADIOLOGY: reviewed with the radiologist CONSULTATION: hospitalist was notified for admission REEVALUATION: Patient has remained hemodynamically stable with no evidence of septic shock MEDICAL DECISION MAKING: Elderly 76-year-old female presents the emergency department with an altered mental status. Differential diagnosis entertained was broad and potential high acuity. Ultimately, patient shows evidence of a urinary tract infection accompanied by an encephalopathy. Given the patient's underlying comorbid conditions, patient will require admission for observation, IV antibiotics and further evaluation. Departure Diagnosis: Primary Impression: UTI (urinary tract infection) Additional Impression: Encephalopathy Condition: CHRISS Currie Apr 28, 2017 11:29
--- NOTE | 2017-04-28 12:11 | HP ---
Date/Time of Note Date/Time of Note DATE: 04/28/17 TIME: 12:11 Assessment/Plan VTE Prophylaxis VTE Prophylaxis Intervention: LMWH Lines/Catheters Urinary Cath still in place: No Assessment/Plan Chief Complaint/Hosp Course 1. Possible underlying urinary tract infection. No evidence of any sepsis. The patient will be started on empiric antibiotics. Pancultures will be ordered. 2. Essential hypertension. The patient will be started on PRN antihypertensives. The patient will be kept strict n.p.o. until speech therapy evaluation. 3. Advanced dementia. The patient has chronic encephalopathy. She will be maintained on aspiration precautions. The patient has advanced dementia and ordering further imaging studies and evaluation of potential acute on chronic encephalopathy is not feasible at this time provided the patient's advanced dementia. It is hard to assess the patient's baseline mental status because of underlying dementia and the patient being non-verbal. Will monitor the patient' s mental status. 4. Dysphagia. The patient will be maintained on aspiration precautions. Will order Speech Therapy evaluation. 5. History of breast cancer. Status post right mastectomy. Plan: The patient will be admitted to inpatient medical surgical floor. The patient will be kept n.p.o. until speech therapy evaluation. The patient will be started on DVT prophylaxis. Activities will be bedrest. The rest of the patient's management will be based on the clinical course and the results of diagnostic studies. Based on the patient's clinical presentation, she most probably requires at least 2 midnights' stay for further management and evaluation of her clinical presentation. The case and management of this patient was fully discussed with . Problems: HPI/ROS Admit Date/Time Admit Date/Time Hx of Present Illness Reason for admission: Brought in by family because of vomiting, more lethargic than usual. This is an unfortunate 76-year-old female with past medical history of essential hypertension, significant dementia who is nonverbal and bedridden, breast cancer, dyslipidemia, degenerative joint disease, and schizophrenia who was brought in by family members because of vomiting and more lethargic than usual. The patient is chronically bedridden and is being taken care of by her family. The patient is nonverbal. Details of the patient's medical history was obtained from review of the patient's medical records as well as talking to the patient's nurse. As per the patient's nurse, the patient is not on any medications at home. The patient is being fed with a liquid based diet. In the emergency room, the patient was noticed to be febrile. The patient also had high blood pressure reading in the emergency room. The patient's lactic acid level was within normal limits. The patient's WBC was within normal limits. The patient's urinalysis showed positive nitrate, positive leukocyte esterase along with the urine microscopic WBC of 66. The patient was treated with IV ceftriaxone in the emergency room. ROS Subjective hx not possible: pt non-verbal PMH/Family/Social Past Medical History Medical History: high cholesterol, hypertension, other (Dementia, schizophrenia , degenerative joint disease) Past Surgical History Past Surgical Hx: other (Right mastectomy) Social History Patient lives at home. Bedridden. Family takes care of the patient Alcohol Use: none Smoking Status: Unknown if ever smoked Drug Use: none Exam/Review of Systems Vital Signs Vitals Vital Signs Date Time Temp Pulse Resp B/P Pulse Ox O2 Delivery O2 Flow Rate FiO2 04/28/17 12:01 68 18 195/69 100 Nasal Cannula 2.0 04/28/17 09:19 99.8 Exam Exam General: Adequately build 76 year-old female lying in bed in no apparent distress. HEENT: Normocephalic, atraumatic. Eyes: Anicteric sclerae, conjunctivae clear. ENT: Nasal septum is midline, oral mucosa is dry. Neck supple, no JVD noticed. Respiratory: Bilaterally diminished breath sounds. No use of accessory muscles of respiration. No adventitious breath sounds. Cardiovascular: S1, S2 heard. Grade II/ NAVARRO. Abdomen: Soft, nontender, and nondistended. Bowel sounds positive in all 4 quadrants. Genitourinary: Mcclendon in place. Extremities: No cyanosis, no clubbing, no edema. Peripheral pulses palpable. Neurologic: Nonverbal. Does not follow any commands. Opens eyes. Skin: Normal skin turgor. No skin rashes. Labs Result Diagram: 04/28/1792904/28/17 09 Medications Medications Current Medications Hydralazine HCl (Apresoline) 10 mg Q6H PRN IV SBP>160; Start 04/28/17 at 12:30 Ondansetron HCl (Zofran Inj) 4 mg Q6H PRN IV NAUSEA AND/OR VOMITING; Start 12/ 14/17 at 12:30 Acetaminophen (Tylenol Supp) 650 mg Q6H PRN [place] PAIN LEVEL 1-3 OR FEVER; Start 04/28/17 at 12:30 Bisacodyl (Dulcolax Supp) 10 mg DAILY PRN [place] CONSTIPATION; Start 04/28/17 at 12:30 Enoxaparin Sodium 40 mg 40 mg DAILY SC ; Start 04/29/17 at 09:00 Ceftriaxone Sodium (Rocephin) 50 ml @ 100 mls/hr Q24H IVPB ; Start 04/28/17 at 12:30; Status CHANG PONCE NP Apr 28, 2017 12:11
[2017-04-28] MEDS: hydrALAzine 20 MG INJ IV PRN (12:22)
[2017-04-28] MEDS ORDERED: ACETAMINOPHEN 650 MG SUPP PR PRN (12:30)
[2017-04-28] MEDS ORDERED: ONDANSETRON 4 MG INJ IV PRN (12:30)
[2017-04-28] MEDS: CEFTRIAXONE 1 GM/50 ML (PMX) 50 ML IVPB SCH (12:30)
[2017-04-28] MEDS ORDERED: BISACODYL 10 MG SUPP PR PRN (12:30)
[2017-04-28] MEDS ORDERED: NACL 0.9% 3 ML SYG IV SCH (12:30)
[2017-04-28 12:40] VITALS: TEMP 99.8
[2017-04-28 12:57] VITALS: BP 116/56; RESP 19
[2017-04-28] MEDS: SOD CHLORIDE 0.9% 1,000 ML IV SCH (13:59)
--- NOTE | 2017-04-28 16:51 | RADRPT ---
PROCEDURE: XR Chest. CLINICAL INDICATION: Chest pain with possible sepsis TECHNIQUE: AP Portable chest. COMPARISON: 02/01/2012 chest x-ray FINDINGS: Multiple EKG leads is superimposed over the chest wall. Mild cardiomegaly is present with mild vascu lar calcifications of the thoracic aorta. No focal infiltrates, masses or effusions are present. No pneumothorax is noted. Generalized osteopenia is present with degenerative changes of the bilateral acromioclavicular joints. IMPRESSION: 1. No radiographic evidence for acute cardiopulmonary disease 2. Mild cardiomegaly and atherosclerotic vascular disease 3. Generalized osteopenia and bilateral acromioclavicular osteoarthropathy RPTAT: HDC .Trista Hurst MD, MD Date Time Electronically viewed and signed by .Trista Hurst MD, on 04/28/2017 09:52 .C/
[2017-04-28 20:00] VITALS: BP 129/90; RESP 18
[2017-04-29 02:00] VITALS: BP 160/68; RESP 20
[2017-04-29] MEDS: SOD CHLORIDE 0.9% 1,000 ML IV SCH ×2 (03:41→16:40)
[2017-04-29 06:37] LABS: BASOPHIL # 0.1 10^3/ul (0.0-0.1); BASOPHILS % 0.6 % (0.0-2.0); EOSINOPHILS # 0.1 10^3/ul (0.0-0.5); HEMATOCRIT 35.4 % (37.0-47.0); LYMPHOCYTES # 2.2 10^3/ul (0.8-2.9); LYMPHOCYTES % 27.9 % (15.0-51.0); MEAN CORPUSCULAR HEMOGLOBIN 29.8 pg (29.0-33.0); MEAN CORPUSCULAR HGB CONC 33.9 g/dl (32.0-37.0); MEAN CORPUSCULAR VOLUME 87.8 fl (82.0-101.0); MEAN PLATELET VOLUME 9.8 fl (7.4-10.4); MONOCYTE # 0.6 10^3/ul (0.3-0.9); MONOCYTES % 8.2 % (0.0-11.0); NEUTROPHIL # 4.8 10^3/ul (1.6-7.5); NEUTROPHILS % 61.7 % (39.0-77.0); PLATELET COUNT 242 10^3/UL (140-415); RED BLOOD COUNT 4.03 10^6/ul (4.20-5.40); RED CELL DISTRIBUTION WIDTH 12.6 % (11.5-14.5); WHITE BLOOD COUNT 7.8 10^3/ul (4.8-10.8)
[2017-04-29 07:01] LABS: CHOL/HDL RATIO 4.2 RATIO; MAGNESIUM 1.7 mg/dl (1.7-2.5); PHOSPHORUS 3.9 mg/dl (2.5-4.9)
[2017-04-29 07:58] LABS: ALBUMIN 3.1 g/dl (3.3-4.9); ALBUMIN/GLOBULIN RATIO 1.06; BILIRUBIN,INDIRECT 0.4 mg/dl (0-1.1); BILIRUBIN,TOTAL 0.4 mg/dl (0.2-1.3); CALCIUM 8.4 mg/dl (8.4-10.2); CREATININE 0.61 mg/dl (0.44-1.00); POTASSIUM 3.9 mmol/L (3.5-5.1)
[2017-04-29] MEDS: ENOXAPARIN 40 MG/0.4 ML SYG SC SCH (08:12)
[2017-04-29 08:15] VITALS: BP 170/70; RESP 22
[2017-04-29 09:00] VITALS: BP 156/67; PULSE 75
[2017-04-29 10:49] VITALS: BP 143/65; PULSE 83
--- NOTE | 2017-04-29 11:59 | PN ---
Date/Time of Note Date/Time of Note DATE: 04/29/17 TIME: 11:53 Assessment/Plan VTE Prophylaxis VTE Prophylaxis Intervention: LMWH Lines/Catheters IV [facility] ([facility] Peripheral IV Urinary Cath still in place: No Assessment/Plan Assessment/Plan 1. Acute on chronic encephalopathy, UTI related 2. UTI, on rocephin, follow up with culture 3. HTN, stable 4. Dementia, chronic 5. h/o breast cancer DVT prophylaxis: lovenox Subjective 24 Hr Interval Summary Free Text/Dictation full alert, nonverbal. no distress Exam/Review of Systems Vital Signs Vitals Vital Signs Date Time Temp Pulse Resp B/P Pulse Ox O2 Delivery O2 Flow Rate FiO2 04/29/17 10:49 83 143/65 04/29/17 08:15 98.4 22 100 04/28/17 20:00 Nasal Cannula 2.0 Intake and Output 04/28/17 04/28/17 04/29/17 15:00 23:00 07:00 Intake Total 300 ml 850 ml Output Total 400 ml 350 ml Balance -100 ml 500 ml Exam Constitutional: alert, non-verbal Head: atraumatic, normocephalic Eyes: PERRL, other (minimally pikish on both conjectiva but no discharge) ENMT: mucosa pink and moist, nl external ears & nose, nl lips & teeth Neck: non-tender, supple Respiratory: clear to auscultation, normal air movement Cardiovascular: nl pulses, regular rate and rhythm, No S3, No S4, No bruits, No diastolic murmur, No edema, No gallop, No irregular rhythm, No jugular venous distention (JVD), No murmurs/extra sounds, No other, No rub, No systolic murmur Gastrointestinal: nl liver, spleen, soft Musculoskeletal: nl extremities to inspection Extremities: normal pulses, No calf tenderness, No clubbing, No cyanosis, No edema, No other, No palpable cord, No pitting pedal edema, No tenderness Neurological: PRESSURE TESTER II-XII intact, confused Skin: nl turgor Lymph: nl lymph nodes Results Result Diagram: 04/29/17 0553 04/29/17 0553 Results 24 hrs Laboratory Tests Test 04/28/17 13:54 04/29/17 05:53 04/29/17 05:54 Lactic Acid Level 2.2 *H White Blood Count 7.8 Red Blood Count 4.03 L Hemoglobin 12.0 Hematocrit 35.4 L Mean Corpuscular Volume 87.8 Mean Corpuscular Hemoglobin 29.8 Mean Corpuscular Hemoglobin Concent 33.9 Red Cell Distribution Width 12.6 Platelet Count 242 Mean Platelet Volume 9.8 Neutrophils % 61.7 Lymphocytes % 27.9 Monocytes % 8.2 Eosinophils % 1.0 Basophils % 0.6 Nucleated Red Blood Cells % 0.0 Neutrophils # 4.8 Lymphocytes # 2.2 Monocytes # 0.6 Eosinophils # 0.1 Basophils # 0.1 Nucleated Red Blood Cells # 0.0 Sodium Level 141 Potassium Level 3.9 Chloride Level 111 H Carbon Dioxide Level 22 Anion Gap 12 Blood Urea Nitrogen 16 Creatinine 0.61 Glucose Level 78 # Calcium Level 8.4 Total Bilirubin 0.4 Direct Bilirubin 0.00 Indirect Bilirubin 0.4 Aspartate Amino Transf (AST/SGOT) 23 Alanine Aminotransferase (ALT/SGPT) 25 Alkaline Phosphatase 41 L Total Protein 6.0 #L Albumin 3.1 L Globulin 2.90 Albumin/Globulin Ratio 1.06 Phosphorus Level 3.9 Magnesium Level 1.7 Triglycerides Level 80 Cholesterol Level 177 LDL Cholesterol, Calculated 119 HDL Cholesterol 42 Cholesterol/HDL Ratio 4.2 Medications Medications Current Medications Hydralazine HCl (Apresoline) 10 mg Q6H PRN IV SBP>160 Last administered on 12:22; Admin Dose 10 MG; Start 04/28/17 at 12:30 Ondansetron HCl (Zofran Inj) 4 mg Q6H PRN IV NAUSEA AND/OR VOMITING; Start at 12:30 Acetaminophen (Tylenol Supp) 650 mg Q6H PRN [place] PAIN LEVEL 1-3 OR FEVER; Start 04/28/17 at 12:30 Bisacodyl (Dulcolax Supp) 10 mg DAILY PRN [place] CONSTIPATION; Start 04/28/17 at 12:30 Enoxaparin Sodium 40 mg 40 mg DAILY SC Last administered on 04/29/17 08:12; Admin Dose 40 MG; Start 04/29/17 at 09:00 Ceftriaxone Sodium 50 ml @ 100 mls/hr Q24H IVPB ; Start 04/28/17 at 12:30 Sodium Chloride (NS) 1,000 ml @ 75 mls/hr [id number] IV Last administered on 12/ 15/17at 03:41; Admin Dose 75 MLS/HR; Start 04/28/17 at 12:30 Influenza Virus Vaccine (Fluzone) 0.5 ml ONCE ONCE IM* ; Start 04/29/17 at 16: 00; Stop 04/29/17 at 16:01 MANDY MORTON MD Apr 29, 2017 11:59
[2017-04-29] MEDS: CEFTRIAXONE 1 GM/50 ML (PMX) 50 ML IVPB SCH (13:07)
[2017-04-29 14:20] VITALS: BP 132/67; RESP 18
[2017-04-29] MEDS ORDERED: INFLUENZA VIRUS VACCINE 0.5 ML SYG IM* ONE (16:00)
[2017-04-29 20:00] VITALS: BP 139/89; RESP 19
[2017-04-30] VITALS (7 sets, daily range): BP systolic 120–196; BP diastolic 58–96; PULSE 96; RESP 19–20
[2017-04-30] MEDS: hydrALAzine 20 MG INJ IV PRN ×2 (03:01→08:59)
[2017-04-30] MEDS: SOD CHLORIDE 0.9% 1,000 ML IV SCH (05:29)
[2017-04-30] MEDS: ENOXAPARIN 40 MG/0.4 ML SYG SC SCH (09:00)
--- NOTE | 2017-04-30 11:51 | PN ---
Date/Time of Note Date/Time of Note DATE: 04/30/17 TIME: 11:48 Assessment/Plan VTE Prophylaxis VTE Prophylaxis Intervention: LMWH Lines/Catheters IV [facility] ([facility]): Peripheral IV Urinary Cath still in place: Yes Reason Cath still needed: other (indicate) Assessment/Plan Chief Complaint/Hosp Course 1. Urinary tract infection. No evidence of any sepsis. Continue antibiotics as per sensitivities. 2. Essential hypertension. The patient will be started on PRN antihypertensives. Start routine antihypertensives. 3. Advanced dementia. 4. Dysphagia. Pured diet. Aspiration precautions. 5. History of breast cancer. Status post right mastectomy. 6. Fluids, electrolytes, and nutrition. Pured diet. 7. DVT prophylaxis. Subcutaneous Lovenox. 8. Plan. Continue antimicrobials. Start routine antihypertensives. Discharge planning to home once blood pressure stable. The case and management of this patient was fully discussed with . Problems: Subjective 24 Hr Interval Summary Free Text/Dictation The patient remains afebrile. Blood pressure running on the higher side. Exam/Review of Systems Vital Signs Vitals Vital Signs Date Time Temp Pulse Resp B/P Pulse Ox O2 Delivery O2 Flow Rate FiO2 04/30/17 08:13 97.8 80 20 183/84 96 04/29/17 08:00 Nasal Cannula 2.0 Intake and Output 04/29/17 04/29/17 04/30/17 14:59 22:59 06:59 Intake Total 50 ml 1190 ml 1130 ml Output Total 400 ml Balance 50 ml 790 ml 1130 ml Exam General: Adequately build 76 year-old female lying in bed in no apparent distress. HEENT: Normocephalic, atraumatic. Eyes: Anicteric sclerae, conjunctivae clear. ENT: Nasal septum is midline, oral mucosa is dry. Neck supple, no JVD noticed. Respiratory: Bilaterally diminished breath sounds. No use of accessory muscles of respiration. No adventitious breath sounds. Cardiovascular: S1, S2 heard. Grade II/ NAVARRO. Abdomen: Soft, nontender, and nondistended. Bowel sounds positive in all 4 quadrants. Genitourinary: Mcclendon in place. Extremities: No cyanosis, no clubbing, no edema. Peripheral pulses palpable. Neurologic: Nonverbal. Does not follow any commands. Opens eyes. Skin: Normal skin turgor. No skin rashes. Results Result Diagram: 04/29/17 0553 04/29/17 0553 Medications Medications Current Medications Hydralazine HCl (Apresoline) 10 mg Q6H PRN IV SBP>160 Last administered on 08:59; Admin Dose 10 MG; Start 04/28/17 at 12:30 Ondansetron HCl (Zofran Inj) 4 mg Q6H PRN IV NAUSEA AND/OR VOMITING; Start at 12:30 Acetaminophen (Tylenol Supp) 650 mg Q6H PRN [place] PAIN LEVEL 1-3 OR FEVER; Start 04/28/17 at 12:30 Bisacodyl (Dulcolax Supp) 10 mg DAILY PRN [place] CONSTIPATION; Start 04/28/17 at 12:30 Enoxaparin Sodium 40 mg 40 mg DAILY SC Last administered on 04/30/17 09:00; Admin Dose 40 MG; Start 04/29/17 at 09:00 Ceftriaxone Sodium 50 ml @ 100 mls/hr Q24H IVPB Last administered on 13:07; Admin Dose 100 MLS/HR; Start 04/28/17 at 12:30 Sodium Chloride (NS) 1,000 ml @ 75 mls/hr [id number] IV Last administered on 05:29; Admin Dose 75 MLS/HR; Start 04/28/17 at 12:30 CHANG CAO NP Apr 30, 2017 11:51
[2017-04-30] MEDS: CIPROFLOXACIN 400MG/D5W 200 ML IVPB SCH (22:37)
[2017-04-30] MEDS: AMLODIPINE 2.5 MG TAB PO SCH (22:38)
[2017-05-01] MEDS: hydrALAzine 20 MG INJ IV PRN (02:39)
[2017-05-01 03:39] VITALS: BP 160/62; PULSE 95
[2017-05-01 03:45] VITALS: BP 148/53; PULSE 88
[2017-05-01 06:53] LABS: BASOPHIL # 0.1 10^3/ul (0.0-0.1); BASOPHILS % 0.7 % (0.0-2.0); EOSINOPHILS # 0.1 10^3/ul (0.0-0.5); HEMATOCRIT 35.8 % (37.0-47.0); HEMOGLOBIN 12.2 g/dl (12.0-16.0); LYMPHOCYTES # 2.3 10^3/ul (0.8-2.9); LYMPHOCYTES % 32.5 % (15.0-51.0); MEAN CORPUSCULAR HEMOGLOBIN 29.8 pg (29.0-33.0); MEAN CORPUSCULAR HGB CONC 34.1 g/dl (32.0-37.0); MEAN CORPUSCULAR VOLUME 87.3 fl (82.0-101.0); MEAN PLATELET VOLUME 9.9 fl (7.4-10.4); MONOCYTE # 0.7 10^3/ul (0.3-0.9); MONOCYTES % 9.4 % (0.0-11.0); NEUTROPHIL # 3.9 10^3/ul (1.6-7.5); PLATELET COUNT 243 10^3/UL (140-415); RED CELL DISTRIBUTION WIDTH 12.9 % (11.5-14.5)
[2017-05-01 07:07] LABS: MAGNESIUM 1.8 mg/dl (1.7-2.5); PHOSPHORUS 3.2 mg/dl (2.5-4.9)
[2017-05-01 07:23] LABS: CALCIUM 8.7 mg/dl (8.4-10.2); CREATININE 0.58 mg/dl (0.44-1.00); POTASSIUM 4.1 mmol/L (3.5-5.1)
[2017-05-01 08:00] VITALS: BP 143/65; RESP 15
[2017-05-01] MEDS: CIPROFLOXACIN 400MG/D5W 200 ML IVPB SCH (09:28)
[2017-05-01] MEDS: ENOXAPARIN 40 MG/0.4 ML SYG SC SCH (09:29)
[2017-05-01] MEDS: AMLODIPINE 2.5 MG TAB PO SCH (09:29)
--- NOTE | 2017-05-01 11:43 | PDOCDIS ---
Discharge Instructions DIAGNOSIS Discharge Diagnosis UTI. CONDITION Patient Condition: Stable HOME CARE INSTRUCTIONS: Special Diet: Puree,[place] Thick FOLLOW UP/APPOINTMENTS Follow-up Plan Jose Jean Baptiste MD Specialty: Internal Medicine Office Address: [address] [place], [place] [id number] Office OTHER ORDERS: Other Orders: 1. Take medications as per prescription. 2. Give a pureed diet with nectar thick liquids. Aspiration precautions. 3. Follow-up with a primary care physician in 1 week. If you do not have a primary care physician, please call Dr. Jose Jean Baptiste's office. CHANG CAO NP May 01, 2017 11:43
[2017-05-01] MEDS ORDERED: CIPR500T4 PO (11:45)
[2017-05-01] MEDS ORDERED: AMLO2.5T78 PO (11:45)
--- NOTE | 2017-05-01 11:49 | DS ---
Date/Time of Note Date/Time of Note DATE: 05/01/17 TIME: 11:48 Discharge Summary Admission/Discharge Info Admit Date/Time Apr 28, 2017 at 11:30 Discharge Date/Time Discharge Diagnosis 1. Urinary tract infection. 2. Essential hypertension. 3. Advanced dementia. 4. Dysphagia. 5. History of breast cancer. Patient Condition: Stable Procedures CXR IMPRESSION: 1. No radiographic evidence for acute cardiopulmonary disease 2. Mild cardiomegaly and atherosclerotic vascular disease 3. Generalized osteopenia and bilateral acromioclavicular osteoarthropathy Hx of Present Illness Reason for admission: Brought in by family because of vomiting, more lethargic than usual. This is an unfortunate 76-year-old female with past medical history of essential hypertension, significant dementia who is nonverbal and bedridden, breast cancer, dyslipidemia, degenerative joint disease, and schizophrenia who was brought in by family members because of vomiting and more lethargic than usual. The patient is chronically bedridden and is being taken care of by her family. The patient is nonverbal. Details of the patient's medical history was obtained from review of the patient's medical records as well as talking to the patient's nurse. As per the patient's nurse, the patient is not on any medications at home. The patient is being fed with a liquid based diet. In the emergency room, the patient was noticed to be febrile. The patient also had high blood pressure reading in the emergency room. The patient's lactic acid level was within normal limits. The patient's WBC was within normal limits. The patient's urinalysis showed positive nitrate, positive leukocyte esterase along with the urine microscopic WBC of 66. The patient was treated with IV ceftriaxone in the emergency room. Hospital Course The patient was admitted to inpatient setting. Pancultures were obtained. The patient's urine culture showed Proteus mirabilis and beta-hemolytic Streptococcus. The patient's blood cultures remained negative. The patient's antibiotics were tailored as per the sensitivity studies. The patient had no evidence of any septic shock. The patient had a Mcclendon catheter inserted in the ER upon admission. This will be discontinued upon discharge. The patient was noticed to have uncontrolled hypertension. The patient apparently is not taking any antihypertensives at home. The patient was initially maintained on as needed antihypertensives and later was started on routine antihypertensives with fairly well controlled blood pressure readings throughout the latter part of the hospital course. The patient has advanced dementia and she is bedridden. There was concern for dysphagia. Hence the patient was evaluated by speech therapy and recommended a pureed diet with nectar thick liquids. The patient was maintained on pured diet with nectar thick liquids and she was maintained on strict aspiration precautions. The patient lives at home and is being taken care of by family members and the family members want to take the patient back home. Therefore, the patient will be discharged home on oral antibiotics to complete the course of antibiotic therapy for her underlying urinary tract infection. The patient' s mental status improved to her baseline. The patient's diminished alertness on admission could have been most probably secondary to her underlying infection. Discharge instructions were provided to the patient's Carlos upon discharge. Ambulance was arranged for transporting the patient home. Case discussed with Dr. Henderson. Home Meds Active Scripts Ciprofloxacin Hcl* (Ciprofloxacin Hcl*) 500 Mg Tablet, 500 MG PO BID, #10 TAB Prov:CHANG CAO NP 05/01/17 Amlodipine Besylate* (Amlodipine Besylate*) 2.5 Mg Tablet, 2.5 MG PO BID, #30 TAB Prov:CHANG COA NP 05/01/17 Discontinued Scripts Clindamycin Hcl* (Clindamycin Hcl*) 300 Mg Capsule, 300 MG PO Q6 for 7 Days, CAP Prov:MANDY MORTON MD 09/17/16 Follow-up Plan Jose Jean Baptiste MD Specialty: Internal Medicine Office Address: [address] [place] [address] Office Primary Care Provider Not On Staff Doctor Time spent on discharge: > 30 minutes Pending Labs Name: DENIS OCHOA Age/Sex: 76/F Attend Dr: MICHAEL MONTIEL Acct: [id number] MR# : [id number] : 1940 Location: [facility] 2267-A Admit: 04/28/17 Specimen: [id number] Status: Complete Alfonso: 04/28/17-949 Rcvd: 04/28-1013 Source: CATHETER U Sp Descrip: Procedure Result Microbiology URINE CULTURE Final Organism 1 PROTEUS MIRABILIS COLONY COUNT >100,000 CFU/ml Organism 2 STREP, BETA HEMOLYTIC GRP G COLONY COUNT 50,000 - 60,000 CFU/ml Beta Streptococcus not Group A maybe a potential pathogen Court RESTREPO M.I.[facility]. RX --------- --- AMPICILLIN <=2 S CEFOTAXIME S CIPROFLOXACIN <=0.25 S GENTAMICIN <=1 S LEVOFLOXACIN <=0.12 S NITROFURANTOIN R TOBRAMYCIN <=1 S TRIMETHOPRIM/SULFAMETHOXAZOLE <=20 S ................................................................................ ............ Flags: Critical Hi = *H Critical Lo = *L Microbiology Abnormal = * Abnormal Hi = H Abnormal Lo = L Blood Bank Abnormal = * Susceptability Flags: S = Sensitive R = Resistant I = Intermediate END OF REPORT Laboratory Tests Test 05/01/17 05:40 White Blood Count 7.010^3/ul (4.8-10.8) Red Blood Count 4.1010^6/ul (4.20-5.40) Hemoglobin 12.2g/dl (12.0-16.0) Hematocrit 35.8% (37.0-47.0) Mean Corpuscular Volume 87.3fl (82.0-101.0) Mean Corpuscular Hemoglobin 29.8pg (29.0-33.0) Mean Corpuscular Hemoglobin Concent 34.1g/dl (32.0-37.0) Red Cell Distribution Width 12.9% (11.5-14.5) Platelet Count 67859^3/UL (140-415) Mean Platelet Volume 9.9fl (7.4-10.4) Neutrophils % 56.0% (39.0-77.0) Lymphocytes % 32.5% (15.0-51.0) Monocytes % 9.4% (0.0-11.0) Eosinophils % 1.0% (0.0-7.0) Basophils % 0.7% (0.0-2.0) Nucleated Red Blood Cells % 0.0/100WBC (0.0-0.0) Neutrophils # 3.910^3/ul (1.6-7.5) Lymphocytes # 2.310^3/ul (0.8-2.9) Monocytes # 0.710^3/ul (0.3-0.9) Eosinophils # 0.110^3/ul (0.0-0.5) Basophils # 0.110^3/ul (0.0-0.1) Nucleated Red Blood Cells # 0.010^3/ul (0.0-0.0) Sodium Level 143mmol/L (135-144) Potassium Level 4.1mmol/L (3.5-5.1) Chloride Level 111mmol/L (97-110) Carbon Dioxide Level 23mmol/L (21-31) Anion Gap 13 (8-16) Blood Urea Nitrogen 14mg/dl (7-20) Creatinine 0.58mg/dl (0.44-1.00) Glucose Level 83mg/dl (70-220) Calcium Level 8.7mg/dl (8.4-10.2) Phosphorus Level 3.2mg/dl (2.5-4.9) Magnesium Level 1.8mg/dl (1.7-2.5) CHANG CAO NP May 01, 2017 11:49
[2017-05-01 14:00] VITALS: BP 137/49; RESP 16
== END 2017-05-01 16:59 | disposition home or self-care (01) | DRG 689 ==
LOC: E/R 09:10 → PP2 11:30
PROVIDERS: ADMIT Family Medicine; ATTEND Family Medicine
PROC: 3E0234Z Introduction of Serum, Toxoid and Vaccine into Muscle, Percutaneous Approach (ICD-10-PCS; principal; 2017-04-29)
DX: N39.0 Urinary tract infection, site not specified (principal); G93.49 Other encephalopathy; Z74.01 Bed confinement status; I10 Essential (primary) hypertension; F03.90 Unspecified dementia, unspecified severity, without behavioral disturbance, psychotic disturbance, mood disturbance, and anxiety; Z23 Encounter for immunization; R13.10 Dysphagia, unspecified; Z85.3 Personal history of malignant neoplasm of breast; E78.00 Pure hypercholesterolemia, unspecified; Z90.11 Acquired absence of right breast and nipple
CPT/HCPCS: 36415; 71010; 80048; 80053; 80061; 81001; 83036; 83605; 83735; 84100; 84439; 84443; 84484; 85025; 85610; 85730; 86850; 86900; 86901; 87040; 87086; 90686; 92610; 93005; 96374; 96375; J0360; J0696; J0744; J1650; J2405; J7030